=== PATIENT | male | born 1945 | race Caucasian/White ===

== ENCOUNTER 2020-02-16 08:04 | Inpatient (IN) | payer MEDICARE, OTHER ==
--- NOTE | 2020-02-16 08:44 | RAD ---
RADIOGRAPH CHEST 1 VIEW: DATE: 02/16/2020 TIME: 8:34 AM HISTORY: 74-year-old male with chest pain COMPARISON: 11/18/2010 FINDINGS: Again noted is the old left clavicular fracture deformity. New sternotomy wires since prior study. New finding of opacification of left lower lobe, and silhouetting of left hemidiaphragm. No pulmonary edema. Left upper lung zone and all of right lung earl are clear. No pneumothorax. IMPRESSION: 1) new opacification of left lower lobe: Atelectasis versus pneumonia. 2) status post coronary artery bypass graft surgery. 3) old left clavicular fracture deformity.
[2020-02-16 09:01] LABS: ALT (SGPT) 83 U/L (8-55); AST (SGOT) 109 U/L (5-34); Albumin 3.4 g/dL (3.4-4.8); Alkaline Phosphatase 158 U/L (40-110); Anion Gap 14 mmol/L (10-20); BUN (Urea Nitrogen) 24 mg/dL (8.4-25.7); Bilirubin, Total 1.1 mg/dL (0.2-1.2); Calc. Creatinine Clearance 0 mL/min (70-130); Calcium 8.7 mg/dL (7.8-10.44); Carbon Dioxide 21 mmol/L (23-31); Chloride 102 mmol/L (98-107); Estimated GFR-MDRD 61; Glucose 84 mg/dL (83-110); Lipase 130 U/L (8-78); Potassium 4.4 mmol/L (3.5-5.1); Protein, Total 6.4 g/dL (5.8-8.1); Sodium 133 mmol/L (136-145)
[2020-02-16 09:22] LABS: CKMB 1.4 ng/mL (0-6.6)
--- NOTE | 2020-02-16 10:03 | CT ---
EXAM: Abdomen and pelvic CT scan with contrast: HISTORY: Abdominal pain COMPARISON: None FINDINGS: 3 vessel coronary artery calcific disease. Lungs:Small to moderate left pleural effusion with some parenchymal changes in the left lower lobe ev idence for probable atelectasis. Liver: Air within some of the biliary tree. Gallbladder:Percutaneous cholecystotomy tube with some air in the gallbladder and some evidence for g allbladder wall thickening. Common bile duct:Nondilated Pancreas:Unremarkable Spleen:Unremarkable. Adrenal glands:Unremarkable. Kidneys:No renal calculus or acute obstruction. There appear to be small bilateral circumscribed low-attenuation renal masses evidence for cysts. In addition in the left kidney there is an enhancing higher density exophytic mass measuring 1.3 cm off the anterior mid kidney as well as a second exophytic enhancing higher density mass off the media l aspect of the upper pole of the left kidney measuring 1.2 cm. Both of these have the appearance of a small solid masses. Consider nonemergent follow-up CT scan with and without contrast with renal mass protocol, unless these have been previously evaluated. No evidence for bowel obstruction. Aorta:Atherosclerotic changes with calcified and soft plaque without significant aneurysm Spine:No significant acute process. No CT evidence for acute appendicitis. The urinary bladder is unremarkable. Reproductive system:Unremarkable No abscess, adenopathy, or abnormal fluid collection within the abdomen or pelvis. 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 Bilateral renal hypodensities evidence for small cysts as well as 2 enhancing exophytic masses of the left kidney worrisome for small solid masses. See recommendations for follow-up as above. Very high-grade/near occlusion of the proximal superior mesenteric artery.
--- NOTE | 2020-02-16 12:14 | PDOC.HHP ---
Hospitalist HPI - History of Present Illness Chest pain History of Present Illness: This is a 74-year-old male patient with a history of dementia, A. fib on Eliquis, recent CABG, cholecystitis who presents from his nursing facility at [facility] on account of chest pain this morning. Patient has history of dementia and poor memory. His daughter at bedside gave most of the history Significant recent history includes CABG done on 01/08/2020. After discharge on 01/20/2020 he got readmitted again on account of nausea and vomiting and diagnosed with cholecystitis. He however could not have surgery on account of his general physical statehad a gallbladder drain placed on 01/25/2020. He was also noted to have left pleural effusion for which he had thoracentesis on 01/28/2020. He was discharged to his custodial facility. 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 He also had atrial fibrillation and had been on Eliquis and was stopped briefly on account of nosebleed however he has been restarted on. He had cardioversion for A. fib couple of weeks ago according to daughter. He has also been having low blood pressures for which she is on fludrocortisone and midodrine. Was also previously on Flomax for BPH however at this also discontinued. This morning he had one episode of a fall while he got out of bed without assistance however he is unaware whether he hit his head and cannot remember most of the circumstances around the fall. He subsequently complained of chest pain for which she was transferred here for further management. EMS brought him in, given 325 mg aspirin en route. His initial blood pressure is with EMS was 90/55 with pulse ranging between 40 and 60,. At presentation His blood pressure was 102/54 with MAP of 70 pulse 57 respiratory 20. Temperature is 98.0 and saturation 100% on room air. His labs showed mildly elevated troponin of 0.04, lipase was 130, sodium 133 and bicarb 21. CBC not resulted. His EKG showed sinus rhythm with first-degree heart block with no concerning acute ST and T wave changes. Chest x-ray showed new opacification of his left lower lobe concerning for atelectasis versus pneumonia. CT revealed small to moderate left pleural effusion, bilateral renal hypodensities evidence of small cyst as well as 2 enhancing exophytic masses of the left kidney worrisome for small solid mass. Also noted very high-grade near occlusion of the proximal superior mesenteric artery. At the time of my evaluation his chest pain had resolved and he was generally pain-free. Patient and his family did not want to go back to [facility] because he preferred here that is why he was brought here rather than sent back to [facility]. After having extensive discussion with the patient on the benefits of going back to [facility] he still insisted on being managed here so I decided to go ahead and admit. Hospitalist ROS - Review of Systems Constitutional: denies: fever, chills, sweats Respiratory: denies: cough, shortness of breath, hemoptysis Cardiovascular: reports: chest pain. denies: palpitations, orthopnea Gastrointestinal: denies: nausea, vomiting, abdominal pain Genitourinary: denies: dysuria, frequency, incontinence Neurological: denies: weakness, numbness, incoordination Hospitalist History - Past Medical History Other Medical History: Dementia, cholecystitis, coronary disease that is post CABG - Past Surgical History Other Surgical History: CABG, gallbladder drain placement. - Family History Other Family History: Stroke, diabetes mellitus, - Social History Smoking Status: Never smoker Alcohol: reports: None Living Situation: Alone Occupation: [employer] Activity level: uses cane/walker - Exam General Appearance: awake alert Eye: PERRL, anicteric sclera Heart: RRR, no murmur, no gallops, normal peripheral pulses Heart - other findings: Surgical scar present Respiratory: no wheezes, no rales, no tachypnea Gastrointestinal: soft, non-tender, non-distended Gastrointestinal - other findings: Gallbladder adrenal right side. Extremities: no cyanosis, no clubbing, no edema Neurological: cranial nerve grossly intact, no weakness Neurological - other findings: Memory deficits Psychiatric: A&O x 3 Hospitalist Results - Labs Result Diagrams: 02/16/20 08:30 Lab results: Sodium 133 mmol/L (136-145) L 02/16/20 08:30 Potassium 4.4 mmol/L (3.5-5.1) 02/16/20 08:30 Chloride 102 mmol/L (98-107) 02/16/20 08:30 Carbon Dioxide 21 mmol/L (23-31) L 02/16/20 08:30 BUN 24 mg/dL (8.4-25.7) 02/16/20 08:30 Creatinine 1.16 mg/dL (0.7-1.3) 02/16/20 08:30 Glucose 84 mg/dL (83-110) 02/16/20 08:30 Lactic Acid 2.0 mmol/L (0.5-2.2) 02/16/20 08:16 Calcium 8.7 mg/dL (7.8-10.44) 02/16/20 08:30 Total Bilirubin 1.1 mg/dL (0.2-1.2) 02/16/20 08:30 AST 109 U/L (5-34) H 02/16/20 08:30 ALT 83 U/L (8-55) H 02/16/20 08:30 Alkaline Phosphatase 158 U/L (40-110) H 02/16/20 08:30 CK-MB (CK-2) 1.4 ng/mL (0-6.6) 02/16/20 08:30 Troponin I 0.041 ng/mL (< 0.028) H 02/16/20 08:30 Serum Total Protein 6.4 g/dL (5.8-8.1) 02/16/20 08:30 Albumin 3.4 g/dL (3.4-4.8) 02/16/20 08:30 Lipase 130 U/L (8-78) H 02/16/20 08:30 Hospitalist H&P A/P - Plan Plan: This is a 74-year-old male patient with a history of dementia, hypertension coronary disease status post CABG, recent CABG admitted for cholecystitis and resident of custodial. His recent surgical procedure isCABG/gallbladder drain were placed in [facility]. He presents today on account of chest pain and a fall this morning and was brought here for further evaluation. Patient and his family did not want to go back to [facility]. Admitting for observation overnight. Chest pain Status post recent CABG Troponin slightly elevated, EKG shows sinus rhythm with first-degree heart block prolonged QT Troponin slightly elevated at 0.041. This is not unexpected in the setting of recent CAD and STEMI Received aspirinwe will continue Appreciate cardiology input. Fall Likely from orthostatic hypotension. Unclear whether he hit his head. Is on anticoagulation on apixaban Telemetry Echofollow-up from [facility]. CT head Hold Eliquis until CT results. Resume fludrocortisone and midodrine PT Fall precaution Hypotension Maps above 65 for now Resume fludrocortisone and midodrine Continue blood pressure monitoring. Elevated troponin Troponin elevated 0.04 No ongoing chest pain We will monitor A. 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 Exophytic renal masses Rule out malignancy Will need follow-up imagingpatient's daughter noticed Left pleural effusion Status post thoracentesis in [facility] Follow-up on any cytology. Recent history of epistaxis Anticoagulation was temporarily held. VT prophylaxisSCD until he is able to restart apixaban CODE STATUS full code Dispositionpending.
[2020-02-16 12:29] LABS: Troponin I 0.054 ng/mL (< 0.028)
[2020-02-16] MEDS ORDERED: Iopamidol-370 76% 500 ML 1 ML ONE (14:23)
[2020-02-16] MEDS ORDERED: Nitroglycerin 0.4 MG TAB 1 EACH SL PRN (15:15)
[2020-02-16] MEDS ORDERED: Ondansetron ODT 4 MG TAB SL PRN (15:15)
[2020-02-16 15:57] LABS: Troponin I 0.039 ng/mL (< 0.028)
[2020-02-16] MEDS ORDERED: Aspirin 325 MG TAB PO SCH (16:00)
--- NOTE | 2020-02-16 17:08 | CT ---
CT BRAIN NONCONTRAST: DATE: 02/16/2020 HISTORY: 74-year-old male status post acute head trauma from fall FINDINGS: There is no evidence of acute intra-axial or extra-axial hemorrhage. There is no midline shift or any other mass effect. There is no extra-axial fluid collection. There is no evidence of obstructive hydrocephalus. Calvarium is intact. There is diffuse brain parenchymal volume loss. There are low att enuation areas in the white matter. These are nonspecific, but in a patient of this age, they are probably chronic ischemic white matter changes due to microvascular atherosclerosis. Small right jerrod etal superficial scalp contusion. IMPRESSION: 1) No acute intracranial findings. 2) involutional changes and chronic ischemic white matter changes. 3) small right parietal scalp contusion.
--- NOTE | 2020-02-16 17:26 | CON ---
DATE OF CONSULTATION: HISTORY OF PRESENT ILLNESS: Mr. Vaughn is a 74-year-old gentleman, who had coronary artery bypass grafting x4 at [facility] by Dr. Toro in early January. He has been home for a brief period of time after surgery and was readmitted with acute cholecystitis. He was not felt to be in any shape to undergo cholecystectomy, so he has had a drain placed in his gallbladder. He also underwent thoracentesis that admission. He was very weak after the cholecystostomy was placed and therefore was sent to the [facility]. While he has been at the [facility], he has not been wanting to eat. He says that the food is terrible, and he has been nauseated when he has tried to eat the food there. His family has brought him [employer], [employer], sushi, Japanese food and other food from outside the hospital, and he has had no problems eating that, although he says he does have a baseline nausea. He had atrial fibrillation postoperatively and was treated with amiodarone. Amiodarone was stopped at his admission this time, and I think that is probably the source of his GI upset. He has had a CT angiogram performed of his abdomen, and I was consulted because he has a near occlusion of his superior mesenteric artery. Celiac axis is widely patent. The patient does not have typical history for someone who has mesenteric ischemia. Currently, he is in normal sinus rhythm. PAST MEDICAL HISTORY: 1. Coronary artery disease, status post coronary artery bypass grafting x4 in early January 2020. 2. Cholecystitis, status post cholecystostomy tube placement. 3. Dementia. PAST SURGICAL HISTORY: As above. CURRENT MEDICATIONS AT HOME: 1. Midodrine 10 mg daily. 2. Lipitor 20 mg q.h.s. 3. Eliquis 2.5 mg b.i.d. 4. Amiodarone 100 mg daily. 5. CoQ10 of 200 mg q.h.s. 6. Zofran 4 mg q.8 hours. PHYSICAL EXAMINATION: GENERAL: This is a well-developed thin gentleman, resting comfortably on the telemetry unit. VITAL SIGNS: His temperature is 98.4. His pulse is 56 and regular. Blood pressure is 97/55. HEENT: Sclerae nonicteric. Pupils are equal and round bilaterally. NECK: Supple. He has no carotid bruit. CHEST: Clear bilaterally. Sternal incision is healing nicely. HEART: Rhythm is regular. ABDOMEN: Soft and nontender. EXTREMITIES: There is no edema. ASSESSMENT AND PLAN: Probable amiodarone-induced gastrointestinal upset. This usually resolves with stopping the amiodarone. Hopefully, he will not need any further workup for mesenteric ischemia as this is historically not his problem. Job ID: [id number]
[2020-02-16] MEDS: Apixaban 2.5 MG TAB PO SCH (21:45)
[2020-02-16] MEDS: Atorvastatin Calcium 20 MG TAB PO SCH (21:45)
--- NOTE | 2020-02-16 22:23 | CON ---
DATE OF CONSULTATION: HISTORY OF PRESENT ILLNESS: Gregg Vaughn is a 74-year-old white male with history of dementia and coronary artery disease, who underwent CABG x4 at [facility] by Dr. Toro in early January. He was readmitted with acute cholecystitis and underwent placement of a drain in his gallbladder since it was felt that it was too frail to undergo surgery. He also had thoracentesis during that admission. He had atrial fibrillation postoperatively and was treated with amiodarone and apparently also underwent cardioversion. Amiodarone was stopped due to poor appetite and GI upset and this seems to have improved. This morning, he got out of bed at the [facility] without assistance and fell. He then complained of chest pain. He states that this pain was definitely pleuritic in nature. He is uncertain exactly how long it lasted but does not think it lasted more than 5 or 10 minutes. He was then transferred here for further evaluation. At the present time, he has no complaints. PAST MEDICAL HISTORY: Coronary artery disease, acute cholecystitis with recent cholecystostomy tube placement, dementia, hypercholesterolemia, postoperative atrial fibrillation with cardioversion. PAST SURGICAL HISTORY: CABG and gallbladder drain placement. MEDICATIONS: 1. Amiodarone 100 mg daily. 2. Eliquis 2.5 mg b.i.d. 3. Atorvastatin 20 at bedtime. 4. Florinef 0.1 daily. 5. Magnesium oxide 400 daily. 6. Midrin 10 mg daily. 7. Nitroglycerin p.r.n. 8. Zofran p.r.n. 9. CoQ10 of 200 mg at bedtime. ALLERGIES: NONE. SOCIAL HISTORY: He does not smoke or drink. PHYSICAL EXAMINATION: VITAL SIGNS: 97/55, pulse of 56. HEENT: PERRL. NECK: Supple. CHEST: Clear. CARDIAC: S1 and S2 normal without any S3, S4, or murmurs. ABDOMEN: Normal bowel sounds without tenderness. EXTREMITIES: Reveal no clubbing, cyanosis, or edema. NEUROLOGIC: Grossly intact. SKIN: Warm and dry. MUSCULOSKELETAL: Revealed no palpable chest wall tenderness. LABORATORY DATA: EKG revealed normal sinus rhythm with first-degree AV block, nonspecific ST and T-wave changes. Sodium 133, potassium 4.4, chloride 102, carbon dioxide 21, BUN 24, creatinine 1.16, AST 109, ALT 83. Troponin I is 0.054. IMPRESSION: 1. Atypical chest discomfort which was pleuritic in nature and occurred after a fall. 2. Status post coronary artery bypass graft x4 in late December or early January. 3. Postoperative atrial fibrillation that apparently required cardioversion. 4. Status post acute cholecystitis with placement of gallbladder drain. 5. Hypercholesterolemia. 6. Hypotension. 7. Dementia. PLAN: Mr. Vaughn's chest discomfort certainly seemed atypical, and I do not feel that it represents myocardial ischemia. Overall, I do not feel any further evaluation is warranted at this time. We will continue to follow the patient with you. Job ID: [id number] [facility]
--- NOTE | 2020-02-16 22:33 | PDOC.FMACP ---
Advance Care Planning - Note Summary: Advanced Care Planning was discussed. The diagnosis, prognosis and goals of care were discussed. Surrogate decision maker is daughter. CODE STATUS full code
[2020-02-17] MEDS: Azithromycin 500 MG in Sodium Chloride 0.9% 250 ML 250 ML IVPB SCH (01:15)
[2020-02-17] MEDS: Cefepime 1 GM in Sodium Chloride 0.9% 100 ML IVPB SCH ×2 (02:29→12:02)
[2020-02-17 04:44] LABS: ALT (SGPT) 317 U/L (8-55); AST (SGOT) 329 U/L (5-34); Albumin 3.4 g/dL (3.4-4.8); Alkaline Phosphatase 418 U/L (40-110); Anion Gap 11 mmol/L (10-20); BUN (Urea Nitrogen) 21 mg/dL (8.4-25.7); Bilirubin, Total 1.1 mg/dL (0.2-1.2); Calc. Creatinine Clearance 51 mL/min (70-130); Calcium 8.6 mg/dL (7.8-10.44); Carbon Dioxide 28 mmol/L (23-31); Chloride 103 mmol/L (98-107); Estimated GFR-MDRD 70; Globulin 2.8 g/dL (2.4-3.5); Glucose 91 mg/dL (83-110); Potassium 4.1 mmol/L (3.5-5.1); Protein, Total 6.2 g/dL (5.8-8.1); Sodium 138 mmol/L (136-145)
[2020-02-17 05:25] LABS: Band 2 % (5-11); Eosinophils 3 % (0-10); Hemoglobin 9.8 g/dL (14.0-18.0); Lymphocytes 8 % (21-51); MDiff Complete? YES; Mean Corpuscular HGB CONC 33.4 g/dL (32.0-36.0); Mean Corpuscular Hemoglobin 30.4 pg (27.0-31.0); Mean Corpuscular Volume 91.1 fL (78.0-98.0); Mean Platelet Volume 7.3 fL (7.4-10.4); Monocytes 4 % (0-10); Neutrophil 83 % (42-75); Platelet Count 192 thou/uL (130-400); RBC Distribution Width 14.1 % (11.5-14.5); Red Blood Cell (RBC) Count 3.24 mill/uL (4.70-6.10); White Blood Cell (WBC) Count 5.7 thou/uL (4.8-10.8)
[2020-02-17] MEDS ORDERED: Midodrine HCl 5 MG TAB PO SCH (09:00)
[2020-02-17] MEDS: Fludrocortisone Acetate 0.1 MG TAB PO SCH (09:14)
[2020-02-17] MEDS: Apixaban 2.5 MG TAB PO SCH ×2 (09:14→22:20)
[2020-02-17] MEDS ORDERED: Aspirin 81 mg Enteric Coated Tablet PO SCH (14:15)
[2020-02-17] MEDS: Midodrine HCl 5 MG TAB PO SCH ×2 (15:41→22:21)
[2020-02-17 19:26] LABS: SARS-CoV-2 MS2 Positive; SARS-CoV-2 N Gene Negative; SARS-CoV-2 S Gene Negative; SARS-CoV-2 by NAA Not Detected (NotDetected); SARS-CoV-2 orf1ab Negative
[2020-02-17] MEDS: Atorvastatin Calcium 20 MG TAB PO SCH (22:21)
[2020-02-17] MEDS ORDERED: Sodium Chloride 0.9% 1,000 ML IV SCH (22:30)
--- NOTE | 2020-02-17 22:40 | PDOC.HOSPP ---
- Subjective Encounter Date: 02/17/20 Encounter Time: 10:00 Subjective: Patient was seen and examined in bed. He notes he generally felt better. He denied any chest pain shortness of breath. - Objective Vital Signs & Weight: Vital Signs (12 hours) Temp Pulse Pulse Pulse Resp BP BP 02/17/20 15:33 98.6 F 56 L 16 02/17/20 11:10 61 73 113/55 L 99/57 L 02/17/20 11:09 99.6 F 62 16 BP Pulse Ox Pulse Ox 02/17/20 15:33 99/54 L 100 02/17/20 11:10 100 02/17/20 11:09 113/55 L 100 Weight Admit Weight 131 lb 6.4 oz Weight 131 lb 6.4 oz I&O: 02/16/20 02/17/20 02/18/20 06:59 06:59 06:59 Intake Total 740 850 Output Total 700 525 Balance 40 325 Result Diagrams: 02/17/20 04:03 02/17/20 04:03 Hospitalist ROS - Medication Medications: Active Medications Generic Name Dose Route Start Last Admin Trade Name Kiley PRN Reason Stop Dose Admin Apixaban 2.5 mg 02/16/20 21:00 02/17/20 22:20 Apixaban 2.5 Mg Tab PO 2.5 mg BID JHONNY Administration Atorvastatin Calcium 20 mg 02/16/20 21:00 02/17/20 22:21 Atorvastatin Calcium 20 Mg Tab PO 20 mg HS JHONNY Administration Fludrocortisone Acetate 0.1 mg 02/17/20 09:00 02/17/20 09:14 Fludrocortisone Acetate 0.1 Mg Tab PO 0.1 mg DAILY JHONNY Administration Azithromycin 500 mg/ Sodium 250 mls @ 250 mls/hr 02/16/20 23:30 02/17/20 01:15 Chloride IVPB 250 mls 2330 JHONNY Administration Midodrine 10 mg 02/17/20 15:00 02/17/20 22:21 Midodrine Hcl 5 Mg Tab PO 10 mg TID JHONNY Administration - Exam General Appearance: awake alert Heart: RRR, no murmur, no gallops, normal peripheral pulses Respiratory: no wheezes, no rales, no ronchi, no tachypnea Gastrointestinal: soft, non-tender, non-distended, normal bowel sounds Extremities: no cyanosis, no clubbing, no edema Hosp A/P - Plan This is a 74-year-old male patient recent CABG, status post gallbladder drain placement all done in [facility] admitted a day ago on account of chest p ain and a fall. Patient did not want to go back to [facility] and insisted on being admitted here on his initial presentation He has had low blood pressures at baseline and has been on fludrocortisone and midodrine. He was started on empirical antibiotic coverage for pneumonia on azithromycin and cefepime on account of infiltrates noted on left lower lobe. Vascular surgery and cardiology have evaluated. His symptoms are not thought to be due to coronary artery disease origin. He has heart failure with reduced EF between 30 and 35 Today however his blood pressures have remained low and his midodrine dose was increased. This evening however he is blood cultures came back positive for Citrobacter in 2 bottles. He will be given IV normal saline bolus and antibiotic management intensified. Sepsis Hypotension with Citrobacter growing in blood. We will continue cefepime 2 g twice daily Source not clear at the moment. He however has gallbladder drainage tube is in [facility]. Citrobacter bacteremia Treat as above. ID consult in a.m. S/p gallbladder drain tube Placed in [facility] We will have surgery evaluate in a.m. Transaminitis Likely secondary to sepsis We will treat as above. Right upper quadrant ultrasound in the morning S/p CABG Stable We will monitor Falls Fall precautions VT prophylaxison apixaban CODE STATUSfull
[2020-02-18] MEDS: Cefepime 2 GM in Sodium Chloride 0.9% 100 ML IVPB SCH ×2 (01:39→11:21)
[2020-02-18] MEDS: Sodium Chloride 0.9% 1,000 ML IV SCH ×2 (01:39→16:39)
[2020-02-18] MEDS: Azithromycin 500 MG in Sodium Chloride 0.9% 250 ML 250 ML IVPB SCH (03:00)
[2020-02-18 05:12] LABS: #Eosinphils 0.4 thou/uL (0.0-0.7); #Lymphocytes 0.8 thou/uL (1.20-3.40); #Monocytes 0.5 thou/uL (0.11-0.59); #Neutrophils 4.4 thou/uL (1.40-6.50); %Basophils 0.2 % (0.0-1.0); %Lymphocytes 13.3 % (21.0-51.0); %Monocytes 8.2 % (0.0-10.0); %Neutrophils 72.2 % (42.0-75.0); Hemoglobin 8.4 g/dL (14.0-18.0); Mean Corpuscular HGB CONC 35.2 g/dL (32.0-36.0); Mean Corpuscular Hemoglobin 31.8 pg (27.0-31.0); Mean Corpuscular Volume 90.3 fL (78.0-98.0); Mean Platelet Volume 7.5 fL (7.4-10.4); Platelet Count 168 thou/uL (130-400); Red Blood Cell (RBC) Count 2.64 mill/uL (4.70-6.10); White Blood Cell (WBC) Count 6.1 thou/uL (4.8-10.8)
--- NOTE | 2020-02-18 08:24 | ULT ---
GALLBLADDER ULTRASOUND: HISTORY: Right upper quadrant pain. FINDINGS: Real-time imaging of the right upper quadrant shows a large amount of sludge within the gallbladder. No definitive stones are seen. There is gallbladder wall thickening and a suggestion of edema kimble e. The common duct is 6 mm. The liver shows diffuse increased echogenicity suggesting fatty change. The right kidney is normal in size and not obstructed. The pancreas is obscured. IMPRESSION: 1. A moderate amount of sludge within the gallbladder with gallbladder wall thickening and suggestio n of edema change within the wall. Gallbladder wall measures in the 7 mm range. The common duct is 6 mm in size. 2. Fatty change of the liver. POS: OFF
[2020-02-18] MEDS: Fludrocortisone Acetate 0.1 MG TAB PO SCH (08:59)
[2020-02-18] MEDS: Midodrine HCl 5 MG TAB PO SCH ×3 (08:59→20:52)
[2020-02-18] MEDS: Aspirin 81 mg Enteric Coated Tablet PO SCH (08:59)
[2020-02-18] MEDS: Apixaban 2.5 MG TAB PO SCH (08:59)
[2020-02-18] MEDS ORDERED: Iopamidol 300 61% 50 ML VIAL FS ONE (09:25)
--- NOTE | 2020-02-18 14:35 | RAD ---
Exam: Cholecystostomy tube check with fluoroscopy HISTORY: Evaluate for possible patency of the cystic duct. Patient had a previously distended gallbla dder. FINDINGS: Initial head loader radiograph demonstrates a cholecystostomy tube in the right upper quadrant. P atient was administered contrast into the cholecystostomy tube. Contrast opacifies the gallbladder. Contrast passes from the cystic duct into the common bile duct. There is eventual passage of contrast from the common bile duct into the small bowel. Note, there does appear to be caliber change involving the distal cystic duct. The possibility of underlying mass is not appreciated on current CT . IMPRESSION: Contrast does flow from the gallbladder into the small bowel. However, there is shoulderi ng and caliber change involving the distal common bile duct just proximal to the duodenum. The possibility of an extrinsic mass or intraluminal mass causing narrowing/stricture is a consideration. ERCP is recommended. Findings conveyed to Dr. Houston on 02/18/2020 at 2:34 PM. Code CR Transcribed Date/Time: 02/18/2020 2:57 PM
--- NOTE | 2020-02-18 15:09 | CON ---
DATE OF CONSULTATION: HISTORY OF PRESENT ILLNESS: Gregg Vaughn is a 74-year-old male patient, who is a resident at the [facility], transferred to this facility on this occasion because of proximity to the [facility], admitted on 02/16/2020 to the hospitalist service, seen by Dr. Tha Ulloa, Cardiology; Dr. Luciano Ross, Nelson Toro, Cardiac Surgery for complaints of pain in chest. The patient has a history of dementia, atrial fibrillation on Eliquis, recent coronary artery bypass grafting, postoperatively complicated by distended gallbladder, undergoing cholecystostomy tube reportedly placed January 24, [facility] for distended gallbladder without stones. He had a left thoracentesis on 01/28/2020. He is on Eliquis for atrial fibrillation. The patient when getting out of bed, had a moment of weakness, could not remember incidents around the fall, although he has history of dementia. Blood pressure was 102/54, heart rate 57, respiratory rate 20, sats 100%. He was admitted. He was evaluated in the emergency room. CAT scan of the abdomen and pelvis on 02/16/2020 revealed percutaneous cholecystostomy tube, air in the gallbladder and some evidence for gallbladder wall thickening, common bile duct was not dilated, enhancing left renal mass 1.3 cm, second high-density mass medial left kidney, solid mass, considering nonemergent followup CAT scan without contrast. Renal mass protocol recommended. There appeared to be some narrowing of the SMA and when compared to [facility], this seems to be worse. Dr. Ross and Cortez are seen him for that. The patient underwent abdominal ultrasound on 02/18/2020, demonstrated sludge within the gallbladder, gallbladder wall thickening, common bile duct 6 mm, fatty liver. The patient's echocardiogram this hospitalization reveals EF 45% to 50%, normal RV size and function. Dr. Ulloa has seen him this hospitalization. Since being in this hospital, the patient has been afebrile. Heart rate in the 50s. Output from the cholecystostomy tube was not recorded. The patient nor can tell me whether the tube has been irrigated at the [facility]. ALLERGIES: NONE. SOCIAL HISTORY: Tobacco, none. Alcohol, none. MEDICATIONS: At home, 1. Zofran. 2. CoQ10. 3. Pacerone. 4. Eliquis. 5. Calcium. 6. Florinef. 7. Mag oxide. 8. Nitroglycerin. 9. Midodrine. 10. Acetaminophen. In the hospital, he has been placed on azithromycin IV. PHYSICAL EXAMINATION: VITAL SIGNS: 5 feet 8, 131 pounds, 20 BMI, 97.8 degrees, 54, 106/57. LUNGS: Clear to auscultation. CARDIAC: Regular rate and rhythm without murmur or gallop. ABDOMEN: Soft, nondistended, nontender. Cholecystostomy tube, right subcostal drain into a bag. EXTREMITIES: No ankle edema. LABORATORY DATA: White count 6, hemoglobin 8.4. Basic metabolic profile normal. Bilirubin normal. Lipase is normal. Alkaline phosphatase 418, AST and ALT 329 and 317. ASSESSMENT AND PLAN: 1. Cholecystostomy tube. This has been time. We would recommend tube check under fluoro. If it has adequate drainage and is essentially normal, the tube could be removed. If it does not have adequate drainage, then continued irrigating of the tube and management would be recommended. We will await tube check under fluoro. 2. Coronary artery disease. 3. Dementia. Job ID: [id number]
--- NOTE | 2020-02-18 15:16 | PRG ---
DATE OF SERVICE: 02/18/2020 Gregg Vaughn had a contrast tube check. This revealed some shouldering, narrowing of the distal common bile duct, intrapancreatic. Retrospective review of his CAT scan does not reveal pancreatic head mass. However, given these findings, we would recommend GI consultation for ERCP. His cystic duct is patent. Concern for a distal bile duct stricture or tumor should be given and I would not remove the cholecystostomy tube until this question is answered by ERCP. He may even need to be referred for endoscopic ultrasound as an outpatient. For this reason, we will hold his Eliquis, since he has received Eliquis this morning on Tuesday, he will not be able to have his ERCP until at the soonest Tuesday or . I have notified Dr. Tiburcio Turner, who will see him today. Job ID: [id number]
[2020-02-18 18:11] LABS: #Eosinphils 0.1 thou/uL (0.0-0.7); #Lymphocytes 0.6 thou/uL (1.20-3.40); #Monocytes 0.3 thou/uL (0.11-0.59); #Neutrophils 7.3 thou/uL (1.40-6.50); %Eosinophils 1.7 % (0.0-10.0); %Lymphocytes 7.2 % (21.0-51.0); %Monocytes 3.1 % (0.0-10.0); %Neutrophils 88.1 % (42.0-75.0); Hemoglobin 10.8 g/dL (14.0-18.0); Mean Corpuscular HGB CONC 33.3 g/dL (32.0-36.0); Mean Corpuscular Volume 90.1 fL (78.0-98.0); Platelet Count 204 thou/uL (130-400); RBC Distribution Width 14.1 % (11.5-14.5); White Blood Cell (WBC) Count 8.3 thou/uL (4.8-10.8)
[2020-02-18 18:35] LABS: ALT (SGPT) 174 U/L (8-55); AST (SGOT) 103 U/L (5-34); Albumin 3.4 g/dL (3.4-4.8); Alkaline Phosphatase 354 U/L (40-110); Anion Gap 15 mmol/L (10-20); BUN (Urea Nitrogen) 23 mg/dL (8.4-25.7); Bilirubin, Total 1.3 mg/dL (0.2-1.2); Calc. Creatinine Clearance 56 mL/min (70-130); Calcium 8.5 mg/dL (7.8-10.44); Carbon Dioxide 25 mmol/L (23-31); Chloride 103 mmol/L (98-107); Estimated GFR-MDRD 77; Globulin 3.1 g/dL (2.4-3.5); Glucose 83 mg/dL (83-110); Potassium 4.2 mmol/L (3.5-5.1); Protein, Total 6.5 g/dL (5.8-8.1); Sodium 139 mmol/L (136-145)
[2020-02-18] MEDS ORDERED: Acetaminophen 500 MG TAB PO SCH (20:00)
[2020-02-18] MEDS: Vancomycin HCl 1.25 GM in Sodium Chloride 0.9% 250 ML 250 ML IVPB SCH ×2 (20:52→21:55)
[2020-02-18] MEDS: Atorvastatin Calcium 20 MG TAB PO SCH (20:52)
[2020-02-18] MEDS ORDERED: Sodium Chloride 0.9% 500 ML IV SCH (21:00)
[2020-02-18] MEDS ORDERED: Vancomycin 1.5 GM in Premix Bag 1 BAG IVPB SCH (21:00)
--- NOTE | 2020-02-18 23:01 | CON ---
DATE OF CONSULTATION: 02/18/2020 REASON FOR CONSULTATION: Elevated LFTs. CONSULTING PROVIDER: Abran Houston MD HISTORY OF PRESENT ILLNESS: The patient is a 74-year-old male with past medical history of dementia; atrial fibrillation, on Eliquis; hyperlipidemia; and pericholecystitis, and recent CABG, who initially presented with complaints of chest pain. On review of the patient's chart, the patient was admitted to [facility] in December 2019 and ultimately underwent a four-vessel coronary artery bypass graft. In the postoperative period, he did have what appeared to be cholecystitis and at that time, the patient was deemed too frail to undergo surgery, so he ultimately had a cholecystostomy tube placed. He was ultimately discharged back to the [facility] where the patient is currently a resident at where it is unknown if the patient had a proper followup for this cholecystostomy tube. However, prior to admission, the patient had increasing chest pain that ultimately prompted the long term to transfer him back to [facility] for further evaluation. He was subsequently evaluated by the Cardiology Service with the chest pain deemed to be pleuritic in nature rather than cardiac with no indications for further management at this time. However, General Surgery was also consulted for this cholecystostomy tube where the patient does continue to have some mild pain around the insertion site itself. On initial imaging with the right upper quadrant ultrasound, it did show a large amount of sludge within the gallbladder as well as continued gallbladder wall thickening, but a normal common bile duct 6 mm and diffuse echogenicity seen throughout the entire liver consistent with hepatic steatosis. Currently, the patient states that he is doing well with resolution of his admitting pleuritic/chest pain. However, he does continue to have some mild right upper quadrant abdominal pain. Otherwise, he currently denies any nausea, vomiting, fevers, chills, hematemesis, melena, hematochezia, dysphagia, odynophagia, diarrhea, constipation, or weight loss. REVIEW OF SYSTEMS: A 10-category review of systems was obtained with all responses negative except for the pertinent positives as listed in HPI. PAST MEDICAL HISTORY: As per HPI. PAST SURGICAL HISTORY: Four-vessel CABG and cholecystostomy drain placement. FAMILY HISTORY: Denies any GI malignancies. SOCIAL HISTORY: No mention of any tobacco, alcohol, or illicit drug use. OUTPATIENT MEDICATIONS: Reviewed. ALLERGIES: NO KNOWN DRUG ALLERGIES. PHYSICAL EXAMINATION: VITAL SIGNS: Temperature 97.8, pulse 69, blood pressure 103/52, respiratory rate 16, saturating 100% on room air. GENERAL: The patient was lying in bed, in no acute distress. Alert and oriented x3 (although the patient was prompted by his during some of the sensorium questions). HEENT: Normocephalic, atraumatic. No scleral icterus noted NECK: Supple. No JVD. CARDIOVASCULAR: Regular rate and rhythm with no discernible murmurs, gallops, or rubs. RESPIRATORY: Clear to auscultation bilaterally with no discernible wheezes or rales. ABDOMEN: Normoactive bowel sounds. Soft, nontender, nondistended. A cholecystostomy tube was seen emanating from the right subcostal region with yellowish-greenish fluid within the drain itself. EXTREMITIES: No cyanosis, clubbing, or edema. LABORATORY DATA: CBC with a white blood cell count of 6.1, hemoglobin 8.4, hematocrit 23.9, platelets 168. Chemistry with a sodium of 138, potassium 4.1, chloride 103, CO2 of 28, BUN 21, creatinine 1.03, glucose 91, AST 329, ALT 317, alkaline phosphatase 418, total bilirubin 1.1. CRP 4.22. COVID serology negative. IMAGING DATA: CT of the abdomen and pelvis was obtained on February 16, 2020, which showed [id number] left pleural effusion as well as air within the biliary tree consistent with cholecystostomy tube. Two solid renal masses were also seen concerning for the presence of possible renal malignancy. Near occlusion of the SMA was also seen as well indicative of significant peripheral arterial disease. A tube check was obtained on February 18, 2020, which showed contrast passing from the cystic duct into the common bile duct and ultimately into the small intestine. However, there was a significant caliber change involving the distal common bile duct concerning for the presence of a mass versus stricture. Right upper quadrant abdominal ultrasound was obtained on February 18, 2020, which showed a large amount of sludge within the gallbladder, gallbladder wall thickening, diffuse echogenicity throughout the liver consistent with hepatic steatosis and normal caliber of the common bile duct at 6 mm. ASSESSMENT AND PLAN: The patient is a 74-year-old male with past medical history of dementia; atrial fibrillation, on chronic anticoagulation with Eliquis; hyperlipidemia; recent coronary artery bypass graft x4 that was complicated with cholecystitis and intervened upon with cholecystostomy tube, now presenting with elevated LFTs and continued cholecystostomy tube. Elevated liver function tests. The patient has had a fairly complicated medical course more recently, especially in light of his postoperative period after the 4-vessel coronary artery bypass graft. He had what appeared to be an episode of cholecystitis that was intervened upon with cholecystostomy tube due to the patient's clinical status at that time and being deemed too frail to undergo laparoscopic cholecystectomy. Since that time, the patient has had this cholecystostomy tube in place and has been draining yellowish-greenish fluid with no evidence of purulence or blood per review of the patient's chart and per the patient's at bedside. However, during this hospitalization, the patient had routine labs that showed significant elevation in AST, ALT, and alkaline phosphatase concerning for the presence of a possible biliary obstruction. Tube check obtained on February 17 also showed a caliber change in the distal common bile duct concerning for mass and/or stricture. At this time, it is unknown if this would be artifactual from the imaging modalities use versus collection of microlithiasis/sludge in the distal common bile duct or secondary to possible ampullary stenosis contributing to this caliber change noted on imaging. In any case with imaging and laboratory findings concerning for obstruction, the patient will ultimately need endoscopic retrograde cholangiopancreatography for further evaluation. However, he is also on chronic anticoagulation with Eliquis and this will need to be discontinued for approximately 48 hours prior to undergoing endoscopic retrograde cholangiopancreatography safely. RECOMMENDATIONS: 1. Would continue to trend the patient's LFTs daily for signs of worsening inflammation. 2. Continue to hold any anticoagulation including Eliquis. 3. Would proceed with ERCP on Tuesday for evaluation of the distal common bile duct and probable sphincterotomy performed at that time. 4. Would defer to the General Surgery Service as to timing for cholecystectomy. 5. Agree with placing the patient on broad-spectrum antibiotics, especially in light of possible obstructive process in the common bile duct. 6. Would continue to attempt to obtain records from [facility] regarding the placement of the cholecystostomy tube and the clinical scenario surrounding it. We will continue to follow. Please call with any questions. Job ID: [id number]
[2020-02-18] MEDS: Piperacillin/Tazobactam 4.5 GM in Sodium Chloride 0.9% 100 ML IVPB SCH (23:31)
[2020-02-19] MEDS: Azithromycin 500 MG in Sodium Chloride 0.9% 250 ML 250 ML IVPB SCH (00:10)
--- NOTE | 2020-02-19 01:26 | PDOC.BPN ---
- Brief Progress Note Encounter Date: 02/18/20 Encounter Time: 19:00 Dagoberto morin was called at about 7pm for sepsis alert Patient was more drousy with temp up to 102 Vitals were otherwise stable with soft BPS ON evaluaion Patietient transfered to IMCU for closer monitoring Antibiotics changed from cefepime to zosyn and vancomycin new blood cutures drawn 500mls NS bolus and to continue on 100 Patient has reduced EF thus being cautions with fluids
[2020-02-19 04:00] LABS: #Lymphocytes 1.2 thou/uL (1.20-3.40); #Monocytes 0.6 thou/uL (0.11-0.59); %Basophils 0.1 % (0.0-1.0); %Eosinophils 0.4 % (0.0-10.0); %Lymphocytes 10.9 % (21.0-51.0); %Monocytes 5.9 % (0.0-10.0); %Neutrophils 82.7 % (42.0-75.0); Hemoglobin 8.3 g/dL (14.0-18.0); Mean Corpuscular HGB CONC 33.1 g/dL (32.0-36.0); Mean Corpuscular Hemoglobin 30.1 pg (27.0-31.0); Mean Corpuscular Volume 91.1 fL (78.0-98.0); Mean Platelet Volume 7.3 fL (7.4-10.4); Platelet Count 155 thou/uL (130-400); Red Blood Cell (RBC) Count 2.75 mill/uL (4.70-6.10); White Blood Cell (WBC) Count 10.8 thou/uL (4.8-10.8)
[2020-02-19 04:19] LABS: ALT (SGPT) 119 U/L (8-55); AST (SGOT) 67 U/L (5-34); Albumin 2.7 g/dL (3.4-4.8); Alkaline Phosphatase 266 U/L (40-110); Anion Gap 11 mmol/L (10-20); BUN (Urea Nitrogen) 23 mg/dL (8.4-25.7); Bilirubin, Total 1.2 mg/dL (0.2-1.2); CRP (Inflammatory) 6.35 mg/dL (= or < 0.5); Calc. Creatinine Clearance 61 mL/min (70-130); Calcium 7.7 mg/dL (7.8-10.44); Carbon Dioxide 25 mmol/L (23-31); Chloride 106 mmol/L (98-107); Estimated GFR-MDRD 85; Globulin 2.4 g/dL (2.4-3.5); Glucose 87 mg/dL (83-110); Potassium 4.2 mmol/L (3.5-5.1); Protein, Total 5.1 g/dL (5.8-8.1); Sodium 138 mmol/L (136-145)
[2020-02-19] MEDS: Sodium Chloride 0.9% 1,000 ML IV SCH ×2 (05:19→16:17)
[2020-02-19] MEDS: Piperacillin/Tazobactam 4.5 GM in Sodium Chloride 0.9% 100 ML IVPB SCH ×3 (06:09→21:59)
[2020-02-19] MEDS: Midodrine HCl 5 MG TAB PO SCH ×3 (09:31→22:00)
[2020-02-19] MEDS: Aspirin 81 mg Enteric Coated Tablet PO SCH (09:31)
[2020-02-19] MEDS: Fludrocortisone Acetate 0.1 MG TAB PO SCH (09:34)
--- NOTE | 2020-02-19 11:23 | PRG ---
DATE OF SERVICE: 02/19/2020 SUBJECTIVE: Mr. Vaughn is pleasantly confused. He did spike a fever overnight, was moved to the [facility], but this morning, he is hemodynamically stable. He is afebrile. He denies any abdominal pain, nausea, or vomiting. OBJECTIVE: VITAL SIGNS: Temperature 97.5, blood pressure 91/44, heart rate 50 and regular, and 100% oxygen saturation on room air. GENERAL: Sitting up in bed comfortably, in no distress. Pleasantly confused. HEART: Regular, bradycardia. LUNGS: Clear to auscultation bilaterally. ABDOMEN: Soft and nontender to palpation throughout, nondistended. He does have cholecystostomy tube in place. Site looks good. EXTREMITIES: No peripheral edema. LABORATORY STUDIES: WBC is 10.8, hemoglobin 8.3, platelets 155. Sodium 138, potassium 4.2, BUN 23, creatinine 0.87, total bilirubin 1.2, alkaline phosphatase 266, AST 67, ALT 119. LFTs are slightly down from yesterday. CRP elevated to 6.35, albumin 2.7, lipase 130. COVID PCR is negative. ASSESSMENT AND PLAN: 1. Elevated LFTs, likely secondary to cholecystitis and possible partial common duct obstruction. 2. Cholelithiasis, status post cholecystostomy tube placed at [facility]. 3. Gram-negative bacteremia. 4. Biliary sludge. 5. Atrial fibrillation, on Eliquis. Eliquis is being held since yesterday morning. The patient's contrast study through the cholecystostomy tube demonstrates patent cystic duct, but suggestion of shouldering and narrowing in the distal common bile duct, cannot rule out possibility of extrinsic or intraluminal mass causing stricture in the area. The plan is for the patient to go for endoscopic retrograde cholangiopancreatography tomorrow. At that point, Eliquis will have been held for 48 hours. The patient did spike fever overnight, but is currently afebrile and hemodynamically stable on broad antibiotics with what appears to be a gram-negative sepsis. Further recommendations following ERCP tomorrow. Please call in the meantime with any questions or concerns or significant changes in his clinical status. Job ID: [id number]
--- NOTE | 2020-02-19 16:46 | PDOC.HOSPP ---
- Subjective Subjective: pt was seen and examined. D/w daughter at bedside. no fever. - Objective Vital Signs & Weight: Vital Signs (12 hours) Temp Pulse Ox 02/19/20 15:13 97.2 F L 02/19/20 11:21 97.9 F 02/19/20 08:00 100 02/19/20 07:29 97.5 F L 02/19/20 06:25 98.5 F Weight Admit Weight 131 lb 6.4 oz Weight 131 lb 6.4 oz Most Recent Monitor Data Heart Rate from ECG 53 NIBP 98/48 NIBP BP-Mean 64 Respiration from ECG 20 SpO2 100 I&O: 02/18/20 02/19/20 02/20/20 06:59 06:59 06:59 Intake Total 3040 3502 Output Total 1125 350 Balance 1915 3152 Result Diagrams: 02/19/20 03:34 02/19/20 03:34 Additional Labs: Accuchecks 02/18/20 19:43 POC Glucose 99 Radiology Reviewed by me: Yes EKG Reviewed by me: Yes Hospitalist ROS - Medication Medications: Active Medications Generic Name Dose Route Start Last Admin Trade Name Freq PRN Reason Stop Dose Admin Aspirin 81 mg 02/18/20 09:00 02/19/20 09:31 Aspirin 81 Mg Enteric Coated Tablet PO 81 mg DAILY JHONNY Administration Atorvastatin Calcium 20 mg 02/16/20 21:00 02/18/20 20:52 Atorvastatin Calcium 20 Mg Tab PO 20 mg HS JHONNY Administration Fludrocortisone Acetate 0.1 mg 02/17/20 09:00 02/19/20 09:34 Fludrocortisone Acetate 0.1 Mg Tab PO 0.1 mg DAILY JHONNY Administration Azithromycin 500 mg/ Sodium 250 mls @ 250 mls/hr 02/16/20 23:30 02/19/20 00:10 Chloride IVPB 250 mls 2330 JHONNY Administration Sodium Chloride 1,000 mls @ 100 mls/hr 02/18/20 00:45 02/19/20 16:17 Normal Saline 0.9% IV 1,000 mls .Q10H JHONNY Administration Piperacillin Sod/Tazobactam 100 mls @ 200 mls/hr 02/18/20 22:00 02/19/20 15:56 Sod 4.5 gm/ Sodium Chloride IVPB 100 mls Q8HR JHONNY Administration Vancomycin HCl 1.25 gm/ Sodium 250 mls @ 166.667 mls/hr 02/18/20 21:00 02/18/20 21:55 Chloride IVPB 250 mls 2100 JHONNY Administration Midodrine 10 mg 02/17/20 15:00 02/19/20 15:56 Midodrine Hcl 5 Mg Tab PO 10 mg TID JHONNY Administration - Exam General Appearance: NAD Eye: PERRL ENT: normocephalic atraumatic Neck: supple Heart: RRR Respiratory: CTAB Gastrointestinal: soft, non-tender Gastrointestinal - other findings: positive for cholecystectomy tube Extremities: no cyanosis Skin: normal turgor Neurological: cranial nerve grossly intact Musculoskeletal: normal tone Hosp A/P - Plan The patient is a pleasant 74 years old gentleman who has significant past medical history of atrial fib on Eliquis for stroke prophylaxis, dyslipidemia CAD with status post recent four-vessel CABG in early January. Postoperatively, complicated with cholecystitis; however, patient was deemed not a candidate for surgery. Ultimately, patient had a cholecystectomy tube placed at [facility]. He subsequently discharged to a [facility] for rehab, patient presented to ER with complaint of chest pain, and s/p fall. Patient dec lined to go back to [facility], ultimately he was admitted for further work-up Sepsis - poa --cont IV abx, follow rpt blood culture --pt has hx of low BP at baseline Citrobacter bacteremia - likely related to indwelling cholecystectomy tube as a possible source --cont IV abx. ID was consulted --follow rpt BCx to document clearance Elevated LFT - possible d/t cholecystitis with possible CBD obstruction --GI plans for ERCP tomorrow --cont IV abx as above Hx cholecystitis with s/p cholecystectomy drain placement at [facility] --GI is following. Pt was deemed not a candidate for surgery CAD with s/p recent CABG in January at [facility] --cont home meds as able --cont ASA/Statin, consider holding statin if LFT is trending upward although LFT elevated likely d/t biliary source in appropriate setting --BP and HR too low for BB Chest discomfort --pt was evaluated by cardiology PAF --rate controlled. Eliquis is on hold for procedure Hypotension --cont home medications Midodrine and Florinef
[2020-02-19] MEDS: Vancomycin HCl 1.25 GM in Sodium Chloride 0.9% 250 ML 250 ML IVPB SCH (21:59)
[2020-02-19] MEDS: Atorvastatin Calcium 20 MG TAB PO SCH (22:00)
[2020-02-20] MEDS: Azithromycin 500 MG in Sodium Chloride 0.9% 250 ML 250 ML IVPB SCH (00:37)
[2020-02-20] MEDS: Sodium Chloride 0.9% 1,000 ML IV SCH ×2 (03:12→14:17)
[2020-02-20 03:51] LABS: #Eosinphils 0.3 thou/uL (0.0-0.7); #Lymphocytes 0.9 thou/uL (1.20-3.40); #Monocytes 0.3 thou/uL (0.11-0.59); #Neutrophils 3.4 thou/uL (1.40-6.50); %Basophils 0.3 % (0.0-1.0); %Eosinophils 5.2 % (0.0-10.0); %Lymphocytes 18.7 % (21.0-51.0); %Monocytes 6.2 % (0.0-10.0); %Neutrophils 69.6 % (42.0-75.0); Hemoglobin 7.5 g/dL (14.0-18.0); Mean Corpuscular HGB CONC 33.8 g/dL (32.0-36.0); Mean Corpuscular Hemoglobin 31.1 pg (27.0-31.0); Mean Platelet Volume 7.1 fL (7.4-10.4); Platelet Count 148 thou/uL (130-400); RBC Distribution Width 13.9 % (11.5-14.5); Red Blood Cell (RBC) Count 2.42 mill/uL (4.70-6.10); White Blood Cell (WBC) Count 4.9 thou/uL (4.8-10.8)
[2020-02-20 04:15] LABS: ALT (SGPT) 82 U/L (8-55); AST (SGOT) 43 U/L (5-34); Albumin 2.4 g/dL (3.4-4.8); Alkaline Phosphatase 207 U/L (40-110); Anion Gap 10 mmol/L (10-20); BUN (Urea Nitrogen) 22 mg/dL (8.4-25.7); Calc. Creatinine Clearance 65 mL/min (70-130); Calcium 7.6 mg/dL (7.8-10.44); Carbon Dioxide 22 mmol/L (23-31); Chloride 110 mmol/L (98-107); Estimated GFR-MDRD Greater than 90; Globulin 2.1 g/dL (2.4-3.5); Glucose 77 mg/dL (83-110); Potassium 3.7 mmol/L (3.5-5.1); Protein, Total 4.5 g/dL (5.8-8.1); Sodium 138 mmol/L (136-145)
[2020-02-20] MEDS: Piperacillin/Tazobactam 4.5 GM in Sodium Chloride 0.9% 100 ML IVPB SCH ×3 (05:35→21:41)
[2020-02-20] MEDS: Midodrine HCl 5 MG TAB PO SCH ×3 (09:11→20:49)
[2020-02-20] MEDS ORDERED: Succinylcholine 200 MG/10 ml SYRINGE FS ONE (10:10)
[2020-02-20] MEDS ORDERED: Glycopyrrolate 0.2 MG/ML 5 ML SYRINGE ONE (10:10)
[2020-02-20] MEDS ORDERED: PHENYLEPHRINE-NS 100 MCG/ML 10 ML SYRINGE ONE (10:10)
[2020-02-20] MEDS ORDERED: Lidocaine 1% PF 5 ML VIAL ONE (10:10)
[2020-02-20] MEDS ORDERED: PROPOFOL 200 MG/20 ML VIAL ONE (10:10)
[2020-02-20] MEDS ORDERED: Ondansetron PF 4 MG/2 ML Vial ONE (10:10)
[2020-02-20] MEDS ORDERED: Dexamethasone 20 MG/5 ML VIAL ONE (10:10)
[2020-02-20] MEDS ORDERED: Fentanyl 100 MCG/2 ML VIAL ONE (11:10)
[2020-02-20] MEDS ORDERED: Indomethacin 50 MG SUPP ONE (11:12)
[2020-02-20] MEDS ORDERED: Iothalamate Meglumine 60% 50 ML VIAL FS ONE (11:12)
[2020-02-20] MEDS ORDERED: Ondansetron HCl/PF 4 MG/2 ML Vial IVP PRN (11:21)
[2020-02-20] MEDS ORDERED: Promethazine HCl 25 MG/ML VIAL SLOW IVP PRN (11:21)
[2020-02-20] MEDS ORDERED: Promethazine HCl 25 MG/ML VIAL IM PRN (11:21)
--- NOTE | 2020-02-20 12:41 | RAD ---
EXAM: ERCP HISTORY: Cholelithiasis COMPARISON: Gallbladder ultrasound 02/18/2020 FINDINGS: Limited intraoperative fluoroscopic views were taken during a an ERCP. Common duct is normal in caliber. Some of the images on the middle images show questionable filling d efects in the midportion of the common bile duct. These are not seen on the latter images. No leakage from the common bile duct. Contrast fills the gallbladder and there are multiple filling defects within the gallbladder. A percu taneous cholecystostomy tube is seen in the gallbladder. No abnormality of the intrahepatic bile ducts. IMPRESSION: 1. Cholelithiasis
--- NOTE | 2020-02-20 13:03 | OP ---
DATE OF PROCEDURE: 02/20/2020 PROCEDURE PERFORMED: Endoscopic retrograde cholangiopancreatography with sphincterotomy and balloon sweep of the bile duct. PREOPERATIVE DIAGNOSES: Choledocholithiasis and abnormal liver tests with obstructive pattern and abnormal imaging with a cholangiogram through the cholecystostomy tube suggesting sludge or stones in the bile duct. DESCRIPTION OF PROCEDURE: Informed consent was obtained. The patient was sedated with general anesthesia and placed in the prone position. The duodenoscope was advanced easily to the second portion of the duodenum, where the ampulla was identified and appeared unremarkable. There was no bile flow from the ampulla. The pancreatic duct was initially accessed with a guidewire and the guidewire was left in place in the distal pancreatic duct. The sphincterotome and a new guidewire were then reinserted and the bile duct was selectively cannulated without difficulty. The wire in the pancreatic duct was removed. The patient did receive rectal indomethacin prior to the procedure. Cholangiogram was performed which revealed a 9 mm common bile duct with normal intrahepatic ducts. The cystic duct and gallbladder filled. A complete sphincterotomy was performed. The common hepatic and common bile ducts were swept with a 12 mm balloon, which passed easily through the sphincterotomy without resistance. Only clear yellow bile was retrieved. There were no stones or sludge in the bile duct. Occlusion cholangiogram confirmed the common bile duct and common hepatic duct to be clear. Intrahepatic ducts were normal. IMPRESSION: 1. Cholangiogram showing a 9 mm common bile duct with normal intrahepatic ducts and common hepatic duct with no obvious filling defects. 2. Complete sphincterotomy was performed. 3. The common hepatic and common bile duct were swept with a 12 mm balloon, which passes easily through the sphincterotomy site without resistance. The bile was clear and yellow. 4. Occlusion cholangiogram confirms the common bile duct and common hepatic duct to be clear. RECOMMENDATIONS: 1. Follow trend of the liver tests. 2. Continue antibiotics. Job ID: [id number]
--- NOTE | 2020-02-20 13:49 | PQF ---
CLINICAL DOCUMENTATION CLARIFICATION FORM: Dear Dr. Domingo Capone Date: 02/20/2020 Please exercise your independent, professional judgment in responding to the clarification form. Clinical indicators are provided on the bottom of this form for your review. Please check appropriate box(es): [ X] Protein Calorie Malnutrition: [ ] Mild [ X ] Moderate [ ] Severe [ ] Other Malnutrition (please specify) [ ] Underweight without malnutrition [ ] Other diagnosis [ ] Unable to determine In addition, please specify: Present on Admission (POA): [ X ] Yes [ ] No [ ] Unable to determine For continuity of documentation, please document condition throughout progress notes and discharge summary. Thank You. To be completed by CDI/Coding staff for physician review: CLINICAL INDICATORS - SIGNS / SYMPTOMS / LABS / RESULTS AND LOCATION IN MR *01/15 Consult (Artemio) Amiodarone was stopped due to poor appetite and GI upset and this seems to have improved. *02/16 Labor Representative Assessment (Ulices): BMI 20.0 Nutrition Dx: Malnutrition r/t loss of appetite As Evidenced By pt report of decreased PO intake in the last 1-2 months (unable to quantify d/t limited hx but suspect pt meeting <75% of estimated needs for >1 month) 10.9% weight loss in 1-2 months, moderate to severe muscle wasting and severe fat loss present suggestive of severe malnutrition in the context of acute illness. RISK FACTORS / RESULTS AND LOCATION IN MR *P 02/15 (Affram) HPI: presents from nursing facility. Hx of dementia, Afib on eliquis, recent CABG, cholecystitis. Had a GB drain placed on 01/25/2020. *02/16 Labor Representative Assessment (Ulices): Subjective: He had CABG done 1-2 months ago and says his appetite has declined since then TREATMENT / RESULTS AND LOCATION IN MR *02/16 Labor Representative Assessment (Elena): For 14-23 lb weight loss, poor appetite. (MST Score 3) *Order 02/16: Diet Supplement: Mighty Shake TID with meals *Order 02/16: Diet Supplement: Ensure Enlive Moderate Malnutrition (in acute illness) Energy Intake: <75% of estimated energy requirement for > 7 days Weight Loss: 1-2%/1 week; 5%/ 1 month; 7.5%/3 months Other: mild body fat loss; mild muscle mass loss; mild fluid accumulation; Severe Malnutrition (in acute illness) Energy Intake: = 50% of estimated energy requirement for = 5 days Weight Loss: >2%/1 week; >5%/1 month; >7.5%/3 months Other: moderate body fat loss; moderate muscle mass loss; moderate- severe fluid accumulation; measurably reduced item repair manager strength Moderate Malnutrition (in chronic illness) Energy Intake: <75% of estimated energy requirement for =1 month Weight Loss: 5%/1 month; 7.5%/3 months; 10%/6 months; 20%/1 year Other: mild body fat loss; mild muscle mass loss; mild fluid accumulation Severe Malnutrition (in chronic illness) Energy Intake: =75% of estimated energy requirement for =1 month Weight Loss: >5%/1 month; >7.5%/3 months; >10%/6 months; >20%/1 year Other: severe body fat loss; severe muscle mass loss; severe fluid accumulation; measurably reduced item repair manager strength Thank you, Cortney Pena RN, [email or web address] This is a permanent part of the Medical Record MTD
[2020-02-20] MEDS: Fludrocortisone Acetate 0.1 MG TAB PO SCH (14:17)
[2020-02-20] MEDS: Aspirin 81 mg Enteric Coated Tablet PO SCH (14:17)
--- NOTE | 2020-02-20 16:37 | CON ---
DATE OF CONSULTATION: 02/20/2020 REASON FOR CONSULTATION: Bacteremia. HISTORY OF PRESENT ILLNESS: A 74-year-old who has a history of bypass graft surgery at the end of December at [facility] and atrial fibrillation and dementia, probably vascular dementia, on , who was transferred from rehab unit. After discharged on January 19, the patient had to be readmitted to [facility] because of cholecystitis. It was managed with a percutaneous cholecystostomy placed on January 24 due to ineligibility for cholecystectomy. He had a thoracentesis for left-sided pleural effusion on January 27 and then eventually discharged to a custodial facility. On the day of admission, he fell and then he was having some chest pain. He was transferred because of that. One aspirin given on the way. BP was 90/55, and he was bradycardic, temperature 98, O2 saturations were 100. Chest x-ray with a small area of opacification in left lower lobe, either atelectases or early pneumonitis. 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 An attempt was made to transfer him back to [facility], but family insisted in being managed here. Bile duct contrast study through the cholecystostomy was done, which demonstrated patency of the cystic duct with possible narrowing in the distal CBD. So the plan is for patient to have an ERCP which I think is going to be carried out today or tomorrow. Currently, Mr. Vaughn is awake. He has a little bit of delusional thinking process. He knows he is in the hospital. He denies any headaches. No chest pain or abdominal pain. No genitourinary symptoms, voiding in the urinal. No joint symptoms. PAST MEDICAL HISTORY: Cognitive dysfunction, probably secondary to vascular dementia; coronary artery disease with bypass graft surgery; acute cholecystitis, managed with cholecystostomy. FAMILY HISTORY: CVA, diabetes mellitus. SOCIAL HISTORY: Never smoker. He is a retired marine. CURRENT MEDICATIONS: 1. Azithromycin. 2. Zosyn. 3. Vancomycin. PHYSICAL EXAMINATION: VITAL SIGNS: T-max 102 two days ago. He has been afebrile for the past 2 days. BP 130/60, heart rate 46, respiratory rate 14, O2 saturations 100. GENERAL: Appears in no distress. His midline sternotomy incision has healed, still a little bit dried up blood but no stitches, no felicitas in place. No inflammatory change or drainage noted. The patient has a peripheral IV access and is voiding in the urinal. No lymphadenopathy. HEENT: Ocular movements conjugate. Oral cavity with numerous teeth with no major decay noted. NECK: Supple. LUNGS: Symmetric air entry. No crackles or wheezing. HEART: S1, S2. Regular rate. No S3 or S4. ABDOMEN: Soft, flat, not distended. No ascites. No bladder distention. EXTREMITIES: Moves extremities equally. No edema. Pulses are diminished in dorsalis pedis. Cap refill is a little bit delayed. NEUROLOGIC: He is awake, knows his name. He knew he was in the hospital, could not tell me which. He does not acknowledge that he lives in a custodial and has a lot of delusional thinking process about being sponsored as a triathlete, etc., etc. LABORATORY DATA: White cell count 5.7 and now 4.9, hemoglobin is down to 7.5, MCV 92, platelets 148, 69% neutrophils. Sodium 138, creatinine 0.82, bilirubin went up to 1.3, is down to 1.0 at this time. AST was 329, is down now, and ALT went up to 317, is down to 82 at this point. Albumin 2.4. SARS-CoV PCR negative. Two sets of blood cultures, Citrobacter koseri with a broad susceptibility profile. IMAGING DATA: Include an abdomen and pelvis CT with a percutaneous cholecystostomy noted, thickening of the gallbladder wall, but no ductal dilatation noted. Chest x-ray with opacification in the left lower lobe, which is atelectasis versus pneumonia. ERCP, x-ray showed common duct is normal in caliber. Some filling defects in the midportion of common bile duct. No leakage. ASSESSMENT: Vascular dementia, coronary artery disease with recent bypass graft surgery, acute cholecystitis, managed with percutaneous cholecystostomy at [facility], readmission with likely cholangitis. May have had some transient obstruction of the cholecystostomy tube in the custodial, which led to decompensation. We will discontinue vancomycin and azithromycin and continue Zosyn. Eventual transition to oral quinolone for discharge planning. Duration of therapy around 2 weeks. He is at risk for developing liver abscess, though no obvious obstruction of the CBD is noted at this point in time. Job ID: [id number] [facility]ITAL[facility]
--- NOTE | 2020-02-20 17:42 | PDOC.HOSPP ---
- Subjective Subjective: LFT is trending down, s/p ERCP, no obvious obstruction. - Objective Vital Signs & Weight: Vital Signs (12 hours) Temp Pulse Ox 02/20/20 15:25 97.4 F L 02/20/20 13:32 97.2 F L 02/20/20 07:49 100 02/20/20 07:21 97.2 F L Weight Admit Weight 131 lb 6.4 oz Weight 131 lb 6.4 oz Most Recent Monitor Data Heart Rate from ECG 45 NIBP 118/70 NIBP BP-Mean 86 Respiration from ECG 15 SpO2 100 I&O: 02/19/20 02/20/20 02/21/20 06:59 06:59 06:59 Intake Total 3502 2020 Output Total 350 925 Balance 3152 1095 Result Diagrams: 02/20/20 03:22 02/20/20 03:22 Hospitalist ROS - Medication Medications: Active Medications Generic Name Dose Route Start Last Admin Trade Name Freq PRN Reason Stop Dose Admin Aspirin 81 mg 02/18/20 09:00 02/20/20 14:17 Aspirin 81 Mg Enteric Coated Tablet PO 81 mg DAILY JHONNY Administration Atorvastatin Calcium 20 mg 02/16/20 21:00 02/19/20 22:00 Atorvastatin Calcium 20 Mg Tab PO 20 mg HS JHONNY Administration Fludrocortisone Acetate 0.1 mg 02/17/20 09:00 02/20/20 14:17 Fludrocortisone Acetate 0.1 Mg Tab PO 0.1 mg DAILY JHONNY Administration Sodium Chloride 1,000 mls @ 100 mls/hr 02/18/20 00:45 02/20/20 14:17 Normal Saline 0.9% IV 1,000 mls .Q10H JHONNY Administration Piperacillin Sod/Tazobactam 100 mls @ 200 mls/hr 02/18/20 22:00 02/20/20 14:16 Sod 4.5 gm/ Sodium Chloride IVPB 100 mls Q8HR JHONNY Administration Midodrine 10 mg 02/17/20 15:00 02/20/20 14:18 Midodrine Hcl 5 Mg Tab PO 10 mg TID JHONNY Administration - Exam General Appearance: NAD Eye: PERRL ENT: normocephalic atraumatic Neck: supple Heart: RRR Respiratory: CTAB Gastrointestinal: soft, non-tender Extremities: no cyanosis Skin: normal turgor Neurological: cranial nerve grossly intact Musculoskeletal: normal tone Hosp A/P - Plan The patient is a pleasant 74 years old gentleman who has significant past medical history of atrial fib on Eliquis for stroke prophylaxis, dyslipide jt CAD with status post recent four-vessel CABG in early January. Postoperatively, complicated with cholecystitis; however, patient was deemed not a candidate for surgery. Ultimately, patient had a cholecystectomy tube placed at [facility]. He subsequently discharged to a [facility] for rehab, patient presented to ER with complaint of chest pain, and s/p fall. Patient declined to go back to [facility], ultimately he was admitted for further work-up Sepsis - poa --cont IV abx, follow rpt blood culture --pt has hx of low BP at baseline Citrobacter bacteremia - likely related to indwelling cholecystectomy tube as a possible source --cont Zosyn for now, transition to PO Levaquin upon discharge --follow rpt BCx to document clearance Elevated LFT --likely d/t transient obstruction of CBD, s/p ERCP --follow up LFT Hx cholecystitis with s/p cholecystectomy drain placement at [facility] --GI is following. Pt was deemed not a candidate for surgery CAD with s/p recent CABG in January at [facility] --cont home meds as able --cont ASA/Statin, consider holding statin if LFT is trending upward although LFT elevated likely d/t biliary source in appropriate setting --BP and HR too low for BB Chest discomfort --pt was evaluated by cardiology PAF --rate controlled. Eliquis is on hold for procedure Hypotension --cont home medications Midodrine and Florinef
[2020-02-20] MEDS: Atorvastatin Calcium 20 MG TAB PO SCH (20:49)
[2020-02-21] MEDS: Sodium Chloride 0.9% 1,000 ML IV SCH ×3 (00:44→17:18)
[2020-02-21 04:10] LABS: ALT (SGPT) 65 U/L (8-55); AST (SGOT) 28 U/L (5-34); Albumin 2.5 g/dL (3.4-4.8); Alkaline Phosphatase 200 U/L (40-110); Anion Gap 13 mmol/L (10-20); BUN (Urea Nitrogen) 24 mg/dL (8.4-25.7); Bilirubin, Total 0.7 mg/dL (0.2-1.2); Calc. Creatinine Clearance 50 mL/min (70-130); Calcium 7.8 mg/dL (7.8-10.44); Carbon Dioxide 19 mmol/L (23-31); Chloride 108 mmol/L (98-107); Estimated GFR-MDRD 69; Globulin 2.5 g/dL (2.4-3.5); Glucose 153 mg/dL (83-110); Potassium 4.5 mmol/L (3.5-5.1); Sodium 135 mmol/L (136-145)
[2020-02-21] MEDS: Piperacillin/Tazobactam 4.5 GM in Sodium Chloride 0.9% 100 ML IVPB SCH ×2 (05:50→14:17)
[2020-02-21] MEDS: Midodrine HCl 5 MG TAB PO SCH ×3 (08:05→20:21)
[2020-02-21] MEDS: Fludrocortisone Acetate 0.1 MG TAB PO SCH (08:05)
[2020-02-21] MEDS: Aspirin 81 mg Enteric Coated Tablet PO SCH (08:05)
[2020-02-21 08:08] LABS: #Lymphocytes 0.8 thou/uL (1.20-3.40); #Monocytes 0.2 thou/uL (0.11-0.59); %Basophils 0.1 % (0.0-1.0); %Eosinophils 0.8 % (0.0-10.0); %Lymphocytes 15.8 % (21.0-51.0); %Monocytes 3.6 % (0.0-10.0); %Neutrophils 79.7 % (42.0-75.0); Hemoglobin 9.5 g/dL (14.0-18.0); Mean Corpuscular HGB CONC 32.4 g/dL (32.0-36.0); Mean Corpuscular Hemoglobin 29.2 pg (27.0-31.0); Mean Corpuscular Volume 90.1 fL (78.0-98.0); Mean Platelet Volume 7.3 fL (7.4-10.4); Platelet Count 213 thou/uL (130-400); RBC Distribution Width 13.9 % (11.5-14.5); Red Blood Cell (RBC) Count 3.24 mill/uL (4.70-6.10); White Blood Cell (WBC) Count 5.1 thou/uL (4.8-10.8)
--- NOTE | 2020-02-21 12:00 | PQF ---
CLINICAL DOCUMENTATION CLARIFICATION FORM: Dear Dr. Capone Date: 02/21/2020 Please exercise your independent, professional judgment in responding to the clarification form. Clinical indicators are provided on the bottom of this form for your review. Please check appropriate box(es): [X ] Sepsis due to Citrobacter bacteremia due to indwelling cholecystectomy tube [ ] Sepsis due to Citrobacter bacteremia not due to indwelling cholecystectomy tube [ ] Sepsis due to other: [ ] Other diagnosis [ ] Unable to determine In addition, please specify: Present on Admission (POA): [ X ] Yes [ ] No [ ] Unable to determine For continuity of documentation, please document condition throughout progress notes and discharge summary. Thank You. To be completed by CDI/Coding staff for physician review: CLINICAL INDICATORS - SIGNS / SYMPTOMS / LABS / RESULTS AND LOCATION IN MR *ER Record 02/15: VS: BP 94/55, MAP 68, Pulse 58, resp. 20, Temp. 97.9 *02/16 pn (Affram) A/P: - Sepsis. Hypotension with Citrobacter growing in blood. -Citrobacter bacteremia -S/p gallbladder drain tube. *02/17 Brief pn ([facility]) Code green called about 7pm for sepsis alert. Pt was more drousy with temp up to 102 *02/19 pn (Le) A/P: Sepsis - poa Citrobacter bacteremia - likely related to indwelling cholecystectomy tube as a possible source. RISK FACTORS / RESULTS AND LOCATION IN MR *H&P 02/15 ([facility]) HPI: presents from nursing facility. Hx of dementia, Afib on eliquis, recent CABG, cholecystitis. Had a GB drain placed on 01/25/2020. *02/16 pn (Affram) A/P: Citrobacter bacteremia. S/p gallbladder drain tube. TREATMENTS / RESULTS AND LOCATION IN MR *02/17 Brief pn (Affram) Antibiotics changed from cefepime to zosyn and vancomycin. new blood cx's drawn. 500ml NS bolus and continue on 100 ID Consult 02/19. Assessment: We will discontinue vancomycin and azithromycin and continue Zosyn Thank you, Cortney Pena RN, [email or web address] This is a permanent part of the Medical Record [facility]
--- NOTE | 2020-02-21 17:45 | PDOC.HOSPP ---
- Subjective Subjective: pt was seen and examined, intermittently confused. LFT trending down. no fever - Objective Vital Signs & Weight: Vital Signs (12 hours) Temp Pulse Pulse Pulse BP BP BP 02/21/20 15:14 97.7 F 02/21/20 11:03 97.0 F L 02/21/20 08:55 52 L 60 50 L 120/73 89/54 L 101/57 L 02/21/20 07:35 02/21/20 07:08 97.5 F L Pulse Ox 02/21/20 15:14 02/21/20 11:03 02/21/20 08:55 02/21/20 07:35 98 02/21/20 07:08 Weight Admit Weight 131 lb 6.4 oz Weight 131 lb 6.4 oz Most Recent Monitor Data Heart Rate from ECG 49 NIBP 125/64 NIBP BP-Mean 84 Respiration from ECG 0 SpO2 100 I&O: 02/20/20 02/21/20 02/22/20 06:59 06:59 06:59 Intake Total 2019 4240 Output Total 925 1285 50 Balance 1095 2955 -50 Result Diagrams: 02/21/20 07:56 02/21/20 03:26 Additional Labs: Accuchecks 02/21/20 05:30 POC Glucose 124 H Radiology Reviewed by me: Yes Hospitalist ROS - Medication Medications: Active Medications Generic Name Dose Route Start Last Admin Trade Name Freq PRN Reason Stop Dose Admin Aspirin 81 mg 02/18/20 09:00 02/21/20 08:05 Aspirin 81 Mg Enteric Coated Tablet PO 81 mg DAILY JHONNY Administration Atorvastatin Calcium 20 mg 02/16/20 21:00 02/20/20 20:49 Atorvastatin Calcium 20 Mg Tab PO 20 mg HS JHONNY Administration Fludrocortisone Acetate 0.1 mg 02/17/20 09:00 02/21/20 08:05 Fludrocortisone Acetate 0.1 Mg Tab PO 0.1 mg DAILY JHONNY Administration Sodium Chloride 1,000 mls @ 100 mls/hr 02/18/20 00:45 02/21/20 17:18 Normal Saline 0.9% IV 1,000 mls .Q10H JHONNY Administration Midodrine 10 mg 02/17/20 15:00 02/21/20 14:18 Midodrine Hcl 5 Mg Tab PO 10 mg TID JHONNY Administration - Exam General Appearance: NAD Eye: PERRL ENT: normocephalic atraumatic Neck: supple Heart: RRR Respiratory: CTAB Gastrointestinal: soft Extremities: no cyanosis Skin: normal turgor Hosp A/P - Plan The patient is a pleasant 74 years old gentleman who has significant past medical history of atrial fib on Eliquis for stroke prophylaxis, dyslipidemia CAD with status post recent four-vessel CABG in early January. Postoperatively, complicated with cholecystitis; however, patient was deemed not a candidate for surgery. Ultimately, patient had a cholecystectomy tube placed at [facility]. He subsequently discharged to a [place] for rehab, patient presented to ER with complaint of chest pain, and s/p fall. Patient declined to go back to [facility], ultimately he was admitted for further work-up Sepsis - poa. Resolved. --cont IV abx, follow rpt blood culture --pt has hx of low BP at baseline --transfer to [facility] Citrobacter bacteremia - likely related to indwelling cholecystectomy tube as a possible source --transition to PO Levaquin --rpt BCx no growth. Appreciate ID input Elevated LFT - trending down. --likely d/t transient obstruction of CBD, s/p ERCP --follow up LFT Hx cholecystitis with s/p cholecystectomy drain placement at [facility] --GI is following. Pt was deemed not a candidate for surgery CAD with s/p recent CABG in January at [facility] --cont home meds as able --cont ASA/Statin --BP and HR too low for BB Chest discomfort --pt was evaluated by cardiology PAF --rate controlled. Eliquis was on hold for procedure Hypotension -resolved --cont home medications Midodrine and Florinef
[2020-02-21] MEDS: Atorvastatin Calcium 20 MG TAB PO SCH (20:21)
--- NOTE | 2020-02-21 22:12 | PRG ---
DATE OF SERVICE: 02/21/2020 REASON FOR CONSULTATION: Elevated LFTs with possible common bile duct obstruction. SUBJECTIVE: The patient underwent ERCP yesterday with findings of a dilated common bile duct, but no obvious filling defects contributing to the dilation of the duct. In the post procedure period, the patient denies any pain consistent with post ERCP pancreatitis. In fact, the patient states that he is doing well with no complaints at all and currently denies any nausea, vomiting, fevers, chills, abdominal pain, hematemesis, melena, or hematochezia. He does have some mild abdominal discomfort around the cholecystostomy site, but this has been chronic in nature since its placement. OBJECTIVE: VITAL SIGNS: Temperature 97.2, pulse 47, blood pressure 125/64, respiratory rate 10, saturating 100% on room air. GENERAL: The patient was lying in bed, in no acute distress. Alert and oriented x3. CARDIOVASCULAR: Regular rate and rhythm. RESPIRATORY: Clear to auscultation bilaterally. ABDOMEN: Normoactive bowel sounds. Soft, nontender, nondistended. Cholecystostomy tube seen emanating from the right subcostal region with yellowish-greenish fluid within the drain itself and in the tubing. EXTREMITIES: No cyanosis, clubbing, or edema. LABORATORY DATA: CBC with a white blood cell count of 5.1, hemoglobin 9.5, hematocrit 29.2, platelets 213. Chemistry with a sodium of 135, potassium 4.5, chloride 108, CO2 19, BUN 24, creatinine 1.05, glucose 153, AST 28, ALT 65, alkaline phosphatase 200, total bilirubin 0.7. IMAGING DATA: ERCP was performed on February 20, 2020, which showed a common bile duct measuring approximately 9 mm in size with an intact gallbladder with a normal common hepatic duct and no obvious filling defects. The intrahepatic ducts were also seen during that examination that were normal in character. A sphincterotomy was performed as part of the ERCP with multiple balloon sweeps with a 12 mm balloon through the common hepatic and common bile duct with no evidence of stones or microlithiasis. ASSESSMENT AND PLAN: The patient is a 74-year-old male with past medical history of dementia; atrial fibrillation on chronic anticoagulation with Eliquis; hyperlipidemia; recent coronary artery bypass graft x4 that was complicated with cholecystitis and intervened upon with a cholecystostomy tube, now presenting with elevated liver function tests with continued cholecystostomy tube in place. Elevated liver function tests. The patient initially presented with a history of having a four vessel coronary artery bypass grafting that was further complicated by cholecystitis approximately 2 or 3 weeks later. Given the patient's debilitated status at the time, a cholecystostomy tube was placed and since that time, the patient has had the cholecystostomy tube draining yellowish-greenish fluid with no evidence of purulence or blood per review of the patient's chart. During this hospitalization, the patient was noted to have a significant elevation in AST, ALT, and alkaline phosphatase concerning for possible biliary obstruction, so he underwent endoscopic retrograde cholangiopancreatography on February 20, 2020, with dilation of the common bile duct to 9 mm in size, but no obvious filling defect, stones, or stricture/stenosis noted. A sphincterotomy was performed and in the post endoscopic retrograde cholangiopancreatography period, his liver function tests continued to downtrend and there was no evidence of post endoscopic retrograde cholangiopancreatography pancreatitis. At this time, the etiology of his elevated liver function tests could have been due to an obstructive-type process in the common bile duct, although with the endoscopic retrograde cholangiopancreatography showing no obvious filling defects and makes it less likely. Ampullary stenosis is also within the differential causing possible elevated liver function tests in an obstructive-type pattern. However, again since endoscopic retrograde cholangiopancreatography, his liver function tests are downtrending and have almost normalized in some cases with the patient not experiencing any additional abdominal pain and with downtrending liver function tests. The only question that is left is whether or not the cholecystostomy tube should remain in place or the patient should proceed with cholecystectomy as initially planned. RECOMMENDATIONS: 1. We would continue to trend the patient's LFTs daily for signs of worsening inflammation. 2. Continue to hold anticoagulation for 24 more hours given the sphincterotomy performed yesterday, then restart if clinically appropriate. 3. We would defer to General Surgery Service as to timing of cholecystectomy. 4. Continue the patient on Zosyn per Infectious Disease recommendations. 5. At this time, we have no additional recommendations and will and we will sign off at this time. Please call with any additional questions. Job ID: [id number]
[2020-02-22 03:32] LABS: #Lymphocytes 1.2 thou/uL (1.20-3.40); #Monocytes 0.3 thou/uL (0.11-0.59); #Neutrophils 4.9 thou/uL (1.40-6.50); %Basophils 0.4 % (0.0-1.0); %Eosinophils 0.6 % (0.0-10.0); %Lymphocytes 17.9 % (21.0-51.0); %Neutrophils 76.2 % (42.0-75.0); Hemoglobin 8.2 g/dL (14.0-18.0); Mean Corpuscular HGB CONC 32.5 g/dL (32.0-36.0); Mean Corpuscular Hemoglobin 29.5 pg (27.0-31.0); Mean Corpuscular Volume 90.6 fL (78.0-98.0); Mean Platelet Volume 6.7 fL (7.4-10.4); Platelet Count 224 thou/uL (130-400); RBC Distribution Width 13.9 % (11.5-14.5); White Blood Cell (WBC) Count 6.4 thou/uL (4.8-10.8)
[2020-02-22 03:55] LABS: ALT (SGPT) 48 U/L (8-55); AST (SGOT) 21 U/L (5-34); Albumin 2.4 g/dL (3.4-4.8); Alkaline Phosphatase 145 U/L (40-110); Anion Gap 11 mmol/L (10-20); BUN (Urea Nitrogen) 24 mg/dL (8.4-25.7); Bilirubin, Total 0.6 mg/dL (0.2-1.2); Calc. Creatinine Clearance 59 mL/min (70-130); Calcium 7.6 mg/dL (7.8-10.44); Carbon Dioxide 19 mmol/L (23-31); Chloride 109 mmol/L (98-107); Estimated GFR-MDRD 82; Globulin 2.2 g/dL (2.4-3.5); Glucose 102 mg/dL (83-110); Potassium 3.8 mmol/L (3.5-5.1); Protein, Total 4.6 g/dL (5.8-8.1); Sodium 135 mmol/L (136-145)
[2020-02-22] MEDS: Sodium Chloride 0.9% 1,000 ML IV SCH (06:22)
[2020-02-22] MEDS ORDERED: Sodium Chloride 0.9% 1,000 ML IV SCH (08:19)
[2020-02-22] MEDS ORDERED: Potassium Chloride 20 MEQ TAB PO SCH (08:30)
[2020-02-22] MEDS ORDERED: Furosemide 20 MG/2 ML VIAL SLOW IVP SCH (08:30)
--- NOTE | 2020-02-22 08:36 | EKG ---
Test Reason : Blood Pressure : / mmHG Vent. Rate : 112 BPM Atrial Rate : 110 BPM P-R Int : 000 ms QRS Dur : 096 ms QT Int : 282 ms P-R-T Axes : 000 -29 144 degrees QTc Int : 384 ms Accelerated Junctional rhythm Abnormal ECG Confirmed by ANA MARÍA WILLIS MD ([id number]) on 02/22/2020 8:36:20 AM Referred By: Confirmed By:ANA MARÍA WILLIS MD
--- NOTE | 2020-02-22 08:37 | EKG ---
Test Reason : Blood Pressure : / mmHG Vent. Rate : 095 BPM Atrial Rate : 095 BPM P-R Int : 228 ms QRS Dur : 096 ms QT Int : 346 ms P-R-T Axes : 061 -34 120 degrees QTc Int : 434 ms Poor data quality, interpretation may be adversely affected Sinus rhythm with 1st degree A-V block Left axis deviation T wave abnormality, consider lateral ischemia Abnormal ECG Confirmed by LAZARO MARIN, ANA MARÍA ([id number]) on 02/22/2020 8:36:26 AM Referred By: Confirmed By:ANA MARÍA WILLIS MD
[2020-02-22] MEDS: Midodrine HCl 5 MG TAB PO SCH ×3 (09:29→20:13)
[2020-02-22] MEDS: Aspirin 81 mg Enteric Coated Tablet PO SCH (09:29)
[2020-02-22] MEDS: Fludrocortisone Acetate 0.1 MG TAB PO SCH (09:29)
--- NOTE | 2020-02-22 17:33 | PRG ---
DATE OF SERVICE: 02/22/2020 SUBJECTIVE: Mr. Vaughn is doing well. He has been afebrile. He is tolerating his diet. His liver function tests have returned to normal. His transaminases are normal. Dr. Luciano Horn performed the ERCP and sphincterotomy without findings of choledocholithiasis. There were no filling abnormalities. At this point, I would recommend removal of his gallbladder drain. His drain has put out 150 the last 24 hours with a patent biliary tree and a sphincterotomy. This should resolve without problems. I would place a dressing over the tube entrance site. This should dry and heal without problems. I will see him in the office as needed. I do not think cholecystectomy is indicated as the cholecystostomy tube was placed post coronary artery bypass grafting without cholelithiasis based on a distended gallbladder. Job ID: [id number]
--- NOTE | 2020-02-22 17:40 | PDOC.HOSPP ---
- Subjective Subjective: c/o swelling on extremities. Denies of SOB. pending tele beds. HR sometimes dipped down to high 30s overnight, but asymptomatic. d/w Dr. Ulloa, will d/c IVF, start diuresis. Amiodarone (home med, not resumed) needs to discontinue at discharge. d/w Dr. Houston, who removed the cholecystectomy tube, follow up with him as outpatient as prn. - Objective Vital Signs & Weight: Vital Signs (12 hours) Temp Pulse Pulse Resp BP BP Pulse Ox 02/22/20 17:30 15 98 02/22/20 16:16 16 100 02/22/20 15:45 53 L 52 L 119/63 117/77 02/22/20 15:14 97.0 F L 02/22/20 14:45 98 02/22/20 14:02 100 02/22/20 12:46 99 02/22/20 11:45 97.6 F 02/22/20 09:00 99 02/22/20 08:00 98 02/22/20 07:15 97.0 F L Weight Admit Weight 131 lb 6.4 oz Weight 131 lb 6.4 oz Most Recent Monitor Data Heart Rate from ECG 48 NIBP 119/63 NIBP BP-Mean 81 Respiration from ECG 24 SpO2 100 I&O: 02/21/20 02/22/20 02/23/20 06:59 06:59 06:59 Intake Total 4240 3200 Output Total 1285 1100 975 Balance 2955 2100 -975 Result Diagrams: 02/22/20 03:18 02/22/20 03:18 Radiology Reviewed by me: Yes EKG Reviewed by me: Yes Hospitalist ROS - Medication Medications: Active Medications Generic Name Dose Route Start Last Admin Trade Name Freq PRN Reason Stop Dose Admin Aspirin 81 mg 02/18/20 09:00 02/22/20 09:29 Aspirin 81 Mg Enteric Coated Tablet PO 81 mg DAILY JHONNY Administration Atorvastatin Calcium 20 mg 02/16/20 21:00 02/21/20 20:21 Atorvastatin Calcium 20 Mg Tab PO 20 mg HS JHONNY Administration Fludrocortisone Acetate 0.1 mg 02/17/20 09:00 02/22/20 09:29 Fludrocortisone Acetate 0.1 Mg Tab PO 0.1 mg DAILY JHONNY Administration Levofloxacin 750 mg 02/22/20 06:00 02/22/20 06:29 Levofloxacin 750 Mg Tab PO 750 mg 0600 JHONNY Administration Midodrine 10 mg 02/17/20 15:00 02/22/20 14:44 Midodrine Hcl 5 Mg Tab PO 10 mg TID JHONNY Administration - Exam General Appearance: NAD Eye: PERRL ENT: normocephalic atraumatic Neck: supple Heart: RRR Respiratory: CTAB Gastrointestinal: soft, non-tender Extremities: no cyanosis, no clubbing, 1+ LE edema Skin: normal turgor Neurological: cranial nerve grossly intact Musculoskeletal: normal tone Psychiatric: normal affect, normal behavior, A&O x 3 Hosp A/P - Plan The patient is a pleasant 74 years old gentleman who has significant past medical history of atrial fib on Eliquis for stroke prophylaxis, dyslipidemia CAD with status post recent four-vessel CABG in early January. Postoperatively, complicated with cholecystitis; however, patient was deemed not a candidate for surgery. Ultimately, patient had a cholecystectomy tube placed at [facility]. He subsequently discharged to a [facility] for rehab, yadira fraga presented to ER with complaint of chest pain, and s/p fall. Patient declined to go back to [facility], ultimately he was admitted for further work-up Sepsis - poa. Resolved. --changed IV abx to Levaquin. rpt cultures no growth --pending tele bed. Citrobacter bacteremia - likely related to indwelling cholecystectomy tube as a possible source --transition to PO Levaquin --rpt BCx no growth. Appreciate ID input Elevated LFT - normalized --likely d/t transient obstruction of CBD, s/p ERCP with sphincterectomy --LFT normalized Hx cholecystitis with s/p cholecystectomy drain placement at [facility] --d/w Dr. Houston, d/c cholecystectomy tube. follow up with him as outpatient prn basis CAD with s/p recent CABG in January at [facility] --cont home meds as able --cont ASA/Statin --BP and HR too low for BB. 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 IV Lasix x 1 per cardiology Chest discomfort --pt was evaluated by cardiology PAF --rate controlled. Resume Eliquis. Pt was started on Amiodarone post CABG, but no longer need it. Will need to discontinue it from his home med list upon discharge Hypotension -resolved --cont home medications Midodrine and Florinef Disposition: Return to [facility] for further PT. CM consulted.
[2020-02-22] MEDS: Atorvastatin Calcium 20 MG TAB PO SCH (20:13)
[2020-02-22] MEDS: Apixaban 2.5 MG TAB PO SCH (20:14)
[2020-02-23] MEDS: Apixaban 2.5 MG TAB PO SCH ×2 (09:00→20:32)
[2020-02-23] MEDS: Aspirin 81 mg Enteric Coated Tablet PO SCH (09:00)
[2020-02-23] MEDS: Midodrine HCl 5 MG TAB PO SCH ×3 (09:00→20:32)
[2020-02-23] MEDS: Fludrocortisone Acetate 0.1 MG TAB PO SCH (09:00)
--- NOTE | 2020-02-23 11:50 | PDOC.CPN ---
- Subjective Date: 02/23/20 Time: 13:47 Interval history: No complaints - Objective Allergies/Adverse Reactions: Allergies Allergy/AdvReac Type Severity Reaction Status Date / Time No Known Drug Allergies Allergy Verified 02/16/20 13:47 Visit Medications: Current Medications Apixaban (Apixaban 2.5 Mg Tab) 2.5 mg PO BID [facility] Last Admin: 02/23/20 09:00 Dose: 2.5 mg Documented by: Aspirin (Aspirin 81 Mg Enteric Coated Tablet) 81 mg PO DAILY [facility] Last Admin: 02/23/20 09:00 Dose: 81 mg Documented by: Atorvastatin Calcium (Atorvastatin Calcium 20 Mg Tab) 20 mg PO HS [facility] Last Admin: 02/22/20 20:13 Dose: 20 mg Documented by: Fludrocortisone Acetate (Fludrocortisone Acetate 0.1 Mg Tab) 0.1 mg PO DAILY S Last Admin: 02/23/20 09:00 Dose: 0.1 mg Documented by: Levofloxacin (Levofloxacin 750 Mg Tab) 750 mg PO 0600 [facility] Last Admin: 02/23/20 06:54 Dose: 750 mg Documented by: Midodrine (Midodrine Hcl 5 Mg Tab) 10 mg PO TID [facility] Last Admin: 02/23/20 09:00 Dose: 10 mg Documented by: Nitroglycerin (Nitroglycerin 0.4 Mg Tab 1 Each) 0.4 mg SL Q5MIN PRN PRN Reason: Chest Pain Ondansetron HCl (Ondansetron Odt 4 Mg Tab) 4 mg SL Q8H PRN PRN Reason: Nausea/Vomiting Vital Signs & Weight: Vital Signs Temp Pulse Ox 02/23/20 09:06 98 02/23/20 07:39 100 02/23/20 07:09 97.2 F L 02/23/20 03:37 97.2 F L Admit Weight 131 lb 6.4 oz Weight 131 lb 6.4 oz - Physical Exam General: alert & oriented x3 Neck: no masses, no bruit Cardiac: no murmur, regular rate, regular rhythm Lungs: normal exam - Labs Result Diagrams: 02/22/20 03:18 02/22/20 03:18 Troponin/CKMB CK-MB (CK-2) 1.4 ng/mL (0-6.6) 02/16/20 08:30 Troponin I 0.020 ng/mL (< 0.028) 02/18/20 18:02 - Assessment/Plan Assessment/Plan: Bradycardia Sespsis CAD s/p CABG January () Cardiomyopathy (40-45%) Post op afib dc amiodarone statin, BB IA and PT
--- NOTE | 2020-02-23 14:30 | PDOC.HOSPP ---
- Subjective Encounter Date: 02/23/20 Encounter Time: 11:20 Subjective: Patient appears comfortable. He has a good conversation and almost meaningful. He is alert oriented x3. However he does have a history of dementia he states that he lives locally with his . Care discussed with RN. - Objective Vital Signs & Weight: Vital Signs (12 hours) Temp Pulse Ox 02/23/20 09:06 98 02/23/20 07:39 100 02/23/20 07:09 97.2 F L 02/23/20 03:37 97.2 F L Weight Admit Weight 131 lb 6.4 oz Weight 131 lb 6.4 oz Most Recent Monitor Data Heart Rate from ECG 53 NIBP 95/62 NIBP BP-Mean 73 Respiration from ECG 17 SpO2 96 I&O: 02/22/20 02/23/20 02/24/20 06:59 06:59 06:59 Intake Total 3200 940 Output Total 1100 1495 Balance 2100 -555 Result Diagrams: 02/22/20 03:18 02/22/20 03:18 Hospitalist ROS - Medication Medications: Active Medications Generic Name Dose Route Start Last Admin Trade Name Omidq PRN Reason Stop Dose Admin Apixaban 2.5 mg 02/22/20 21:00 02/23/20 09:00 Apixaban 2.5 Mg Tab PO 2.5 mg BID JHONNY Administration Aspirin 81 mg 02/18/20 09:00 02/23/20 09:00 Aspirin 81 Mg Enteric Coated Tablet PO 81 mg DAILY JHONNY Administration Atorvastatin Calcium 20 mg 02/16/20 21:00 02/22/20 20:13 Atorvastatin Calcium 20 Mg Tab PO 20 mg HS JHONNY Administration Fludrocortisone Acetate 0.1 mg 02/17/20 09:00 02/23/20 09:00 Fludrocortisone Acetate 0.1 Mg Tab PO 0.1 mg DAILY JHONNY Administration Levofloxacin 750 mg 02/22/20 06:00 02/23/20 06:54 Levofloxacin 750 Mg Tab PO 750 mg 0600 JHONNY Administration Midodrine 10 mg 02/17/20 15:00 02/23/20 09:00 Midodrine Hcl 5 Mg Tab PO 10 mg TID JHONNY Administration - Exam General Appearance: NAD, awake alert Eye: PERRL, anicteric sclera ENT: normocephalic atraumatic Neck: supple Heart: RRR Respiratory: CTAB, normal chest expansion Gastrointestinal: soft, normal bowel sounds Neurological: no focal deficits Psychiatric: A&O x 3 Hosp A/P - Plan 74 years old gentleman who has significant past medical history of atrial fib on Eliquis for stroke prophylaxis, dyslipidemia CAD with status post recent four-vessel CABG in early January. Postoperatively, complicated with cholecystitis; however, patient was deemed not a candidate for surgery. Ultimately, patient had a cholecystectomy tube placed at [facility]. He subsequently discharged to a [facility] for rehab, patient presented to ER with complaint of chest pain, and s/p fall. Patient declined to go back to [facility], ultimately he was admitted for further work-up Sepsis - poa. Resolved. -Cultures negative and he is on Levaquin.. Citrobacter bacteremia - likely related to indwelling cholecystostomy tube as a possible source --transition to PO Levaquin --rpt BCx no growth. Appreciate ID input Elevated LFT - normalized --likely d/t transient obstruction of CBD, s/p ERCP with sphincterectomy --LFT normalized Hx cholecystitis with s/p cholecystectomy drain placement at [facility] -ERCP showed common bile duct in normal caliber with a filling defect in the m id part of the common bile duct --d/w Dr. Houston, d/c cholecysttostomy tube. follow up with him as outpatient prn basis --gallbladder drain removed. No indication for cholecystectomy as cystostomy tube placed for gallbladder distention and not far cholecystitis Gallbladder distention possibly due to cholelithiasis post coronary artery bypass graft CAD with s/p recent CABG in January at [facility] --cont ASA/Statin --BP and HR too low for BB.-------------> discontinued amiodarone.-->Started back on blood beta-tapan. 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 IV Lasix x 1 per cardiology PAF Post CABG A. fib --rate controlled. Resume Eliquis. Hypotension -resolved --cont home medications Midodrine and Florinef Vascular dementia -Supportive measures DVT prophylaxis on Eliquis. Disposition: Return to [facility] for further PT. CM consulted. Plan for discharge on Tuesday to [facility]. With 2-week course of Levaquin for acute cholecystitis, status post cholecystectomy drain placement and removal.. Follow-up with Dr. Stokes as needed.
[2020-02-23] MEDS: Atorvastatin Calcium 20 MG TAB PO SCH (20:32)
[2020-02-24] MEDS: Midodrine HCl 5 MG TAB PO SCH ×3 (08:53→20:25)
[2020-02-24] MEDS: Aspirin 81 mg Enteric Coated Tablet PO SCH (08:53)
[2020-02-24] MEDS: Apixaban 2.5 MG TAB PO SCH ×2 (08:53→20:24)
[2020-02-24] MEDS: Fludrocortisone Acetate 0.1 MG TAB PO SCH (08:53)
--- NOTE | 2020-02-24 14:14 | PDOC.CPN ---
- Subjective Date: 02/24/20 Time: 13:00 Interval history: Patient without complaints. No overnight events. - Review of Systems General: denies: fever/chills, weight/appetite/sleep changes, night sweats, fatigue Respiratory: denies: cough, congestion, shortness of breath, exercise intolerance Cardiovascular: denies: chest pain, palpitation, edema, paroxysmal nocturnal dyspnea, orthopnea Gastrointestinal: denies: nausea, vomiting, diarrhea, constipation, abd pain, GI bleeding Musculoskeletal: denies: pain, tenderness, stiffness, swelling, arthritis/arth ralgias Neurological: denies: numbness, syncope, seizure, weakness - Objective Allergies/Adverse Reactions: Allergies Allergy/AdvReac Type Severity Reaction Status Date / Time No Known Drug Allergies Allergy Verified 02/16/20 13:47 Visit Medications: Current Medications Apixaban (Apixaban 2.5 Mg Tab) 2.5 mg PO BID [facility] Last Admin: 02/24/20 08:53 Dose: 2.5 mg Documented by: Aspirin (Aspirin 81 Mg Enteric Coated Tablet) 81 mg PO DAILY [facility] Last Admin: 02/24/20 08:53 Dose: 81 mg Documented by: Atorvastatin Calcium (Atorvastatin Calcium 20 Mg Tab) 20 mg PO HS [facility] Last Admin: 02/23/20 20:32 Dose: 20 mg Documented by: Fludrocortisone Acetate (Fludrocortisone Acetate 0.1 Mg Tab) 0.1 mg PO DAILY [facility] Last Admin: 02/24/20 08:53 Dose: 0.1 mg Documented by: Midodrine (Midodrine Hcl 5 Mg Tab) 10 mg PO TID [facility] Last Admin: 02/24/20 08:53 Dose: 10 mg Documented by: Nitroglycerin (Nitroglycerin 0.4 Mg Tab 1 Each) 0.4 mg SL Q5MIN PRN PRN Reason: Chest Pain Ondansetron HCl (Ondansetron Odt 4 Mg Tab) 4 mg SL Q8H PRN PRN Reason: Nausea/Vomiting Vital Signs & Weight: Vital Signs Temp Pulse Pulse Pulse Pulse Resp BP 02/24/20 11:55 98.0 F 51 L 14 02/24/20 10:04 65 65 61 119/63 02/24/20 08:53 02/24/20 08:46 97.8 F 55 L 16 02/24/20 03:13 97.8 F 60 16 BP BP BP Pulse Ox 02/24/20 11:55 116/62 98 02/24/20 10:04 119/63 130/62 02/24/20 08:53 95 02/24/20 08:46 127/57 L 95 02/24/20 03:13 116/56 L 95 Admit Weight 131 lb 6.4 oz Weight 131 lb 6.4 oz - Physical Exam General: alert & oriented x3, appears well, no apparent distress Neck: supple neck Cardiac: regular rate and rhythm Lungs: clear to auscultation Neuro: grossly intact Abdomen: soft, non-tender Skin: clear Musculoskeletal: no pain - Labs Result Diagrams: 02/22/20 03:18 02/22/20 03:18 Troponin/CKMB CK-MB (CK-2) 1.4 ng/mL (0-6.6) 02/16/20 08:30 Troponin I 0.020 ng/mL (< 0.028) 02/18/20 18:02 - Assessment/Plan Assessment/Plan: 1. Sepsis 2. Bradycardia 3. CAD s/p CABG January ([employer]) 4. Cardiomyopathy (40-45%) 5. Post op afib Doing well from CV standpoint. No changes today.
--- NOTE | 2020-02-24 14:24 | PDOC.HOSPP ---
- Subjective Encounter Date: 02/24/20 Encounter Time: 11:20 Subjective: Patient denies any chest pain or are short of breath. Monitor shows Mobitz type II AV block. Cardiology has been notified. Electrolytes seems to be in the normal range including mag level. - Objective Vital Signs & Weight: Vital Signs (12 hours) Temp Pulse Pulse Pulse Pulse Resp BP 02/24/20 11:55 98.0 F 51 L 14 02/24/20 10:04 65 65 61 119/63 02/24/20 08:53 02/24/20 08:46 97.8 F 55 L 16 02/24/20 03:13 97.8 F 60 16 BP BP BP Pulse Ox 02/24/20 11:55 116/62 98 02/24/20 10:04 119/63 130/62 02/24/20 08:53 95 02/24/20 08:46 127/57 L 95 02/24/20 03:13 116/56 L 95 Weight Admit Weight 131 lb 6.4 oz Weight 131 lb 6.4 oz Most Recent Monitor Data Heart Rate from ECG 53 NIBP 95/62 NIBP BP-Mean 73 Respiration from ECG 17 SpO2 96 I&O: 02/23/20 02/24/20 02/25/20 06:59 06:59 06:59 Intake Total 940 120 Output Total 1495 375 Balance -555 -255 Result Diagrams: 02/22/20 03:18 02/22/20 03:18 Hospitalist ROS - Medication Medications: Active Medications Generic Name Dose Route Start Last Admin Trade Name Freq PRN Reason Stop Dose Admin Apixaban 2.5 mg 02/22/20 21:00 02/24/20 08:53 Apixaban 2.5 Mg Tab PO 2.5 mg BID JHONNY Administration Aspirin 81 mg 02/18/20 09:00 02/24/20 08:53 Aspirin 81 Mg Enteric Coated Tablet PO 81 mg DAILY JHONNY Administration Atorvastatin Calcium 20 mg 02/16/20 21:00 02/23/20 20:32 Atorvastatin Calcium 20 Mg Tab PO 20 mg HS JHONNY Administration Fludrocortisone Acetate 0.1 mg 02/17/20 09:00 02/24/20 08:53 Fludrocortisone Acetate 0.1 Mg Tab PO 0.1 mg DAILY JHONNY Administration Midodrine 10 mg 02/17/20 15:00 02/24/20 08:53 Midodrine Hcl 5 Mg Tab PO 10 mg TID JHONNY Administration - Exam General Appearance: NAD, awake alert Eye: PERRL ENT: normocephalic atraumatic Neck: supple Heart: RRR Respiratory: CTAB, normal chest expansion Gastrointestinal: soft, normal bowel sounds Neurological: no focal deficits Psychiatric: A&O x 3 Hosp A/P - Plan 74 years old gentleman who has significant past medical history of atrial fib on Eliquis for stroke prophylaxis, dyslipidemia CAD with status post recent four-vessel CABG in early January. Postoperatively, complicated with cholecystitis; however, patient was deemed not a candidate for surgery. Ultimately, patient had a cholecystectomy tube placed at [facility]. He subsequently discharged to a [facility] for rehab, patient presented to ER with complaint of chest pain, and s/p fall. Patient declined to go back to [facility], ultimately he was admitted for further work-up Sepsis - poa. Resolved. -Cultures negative and he is on Levaquin.. Citrobacter bacteremia - likely related to indwelling cholecystostomy tube as a possible source --transition to PO Levaquin --rpt BCx no growth. Appreciate ID input Elevated LFT - normalized --likely d/t transient obstruction of CBD, s/p ERCP with sphincterectomy --LFT normalized Hx cholecystitis with s/p cholecystectomy drain placement at [facility] -ERCP showed common bile duct in normal caliber with a filling defect in the mid part of the common bile duct --d/w Dr. Houston, d/c cholecysttostomy tube. follow up with him as outpatient prn basis --gallbladder drain removed. No indication for cholecystectomy as cystostomy tube placed for gallbladder distention and not far cholecystitis Gallbladder distention possibly due to cholelithiasis post coronary artery bypass graft CAD with s/p recent CABG in January at [facility] --cont ASA/Statin --BP and HR too low for BB.-------------> discontinued amiodarone.-->Started back on blood beta-tapan. 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 IV Lasix x 1 per cardiology PAF Post CABG A. fib --rate controlled. Resume Eliquis. Hypotension -resolved --cont home medications Midodrine and Florinef Vascular dementia -Supportive measures DVT prophylaxis on Eliquis. Disposition: Return to [facility] for further PT. CM consulted. Plan for discharge on Tuesday to [facility]. With 2-week course of Levaquin for acute cholecystitis, status post cholecystectomy drain placement and removal.. Follow-up with Dr. Stokes as needed. Concerning for Mobitz type II AV block -discontinued the Levaquin and replace with Augmentin. Mag level and potassium normal range. Will get twelve-lead EKG. Film Loader has been notified. Post op A. fib -234on Eliquis
--- NOTE | 2020-02-24 19:24 | CT ---
HEAD CT WITHOUT CONTRAST: Comparison: 02-16-2020 History: Unwitnessed fall. On Eliquis. Code Green. FINDINGS: No parenchymal hemorrhage. No extraaxial hematoma. No midline shift. Basilar cisterns are patent. Brain volume is age appropriate. Cortical white white matter differentiation is preserved. There are chronic small vessel ischemic changes of the white matter. No hydrocephalus. Adequate aeration of the sinuses and mastoid air cells. Intact calvarium. Small right parietal scalp hematoma, unchanged. IMPRESSION: No intracranial post traumatic sequelae. POS: PPP
[2020-02-24] MEDS: Amoxicillin/Potassium Clav 875 MG TAB PO SCH (20:23)
[2020-02-24] MEDS: Atorvastatin Calcium 20 MG TAB PO SCH (20:24)
[2020-02-25] MEDS: Fludrocortisone Acetate 0.1 MG TAB PO SCH (08:07)
[2020-02-25] MEDS: Amoxicillin/Potassium Clav 875 MG TAB PO SCH ×2 (08:07→22:09)
[2020-02-25] MEDS: Apixaban 2.5 MG TAB PO SCH (08:08)
[2020-02-25] MEDS: Aspirin 81 mg Enteric Coated Tablet PO SCH (08:08)
[2020-02-25] MEDS: Midodrine HCl 5 MG TAB PO SCH ×3 (08:08→22:10)
[2020-02-25] MEDS ORDERED: Furosemide 20 MG/2 ML VIAL SLOW IVP SCH (12:15)
[2020-02-25] MEDS ORDERED: Amiodarone 200 MG TAB PO SCH (12:15)
[2020-02-25] MEDS ORDERED: Potassium Chloride 20 MEQ TAB PO SCH (12:15)
--- NOTE | 2020-02-25 15:01 | PDOC.HOSPP ---
- Subjective Encounter Date: 02/25/20 Encounter Time: 11:40 Subjective: Patient doing well. He he is quite anxious to go home. He thinks he is living at home. He is from [facility]. breakfast manager is working on sending him back to long-term facility. He had a fall yesterday CT head is negative for any acute intracranial abnormality. I believe during that time he had a tachycardia and it showed a transient A. fib rate of around 120. Overnight he is sinus rhythm with rate around 60 with intermittent premature atrial contractions. - Objective Vital Signs & Weight: Vital Signs (12 hours) Temp Pulse Resp BP Pulse Ox 02/25/20 11:05 97.6 F 59 L 16 116/67 95 02/25/20 07:45 97.5 F L 60 16 131/64 96 02/25/20 03:35 97.7 F 60 20 130/68 96 Weight Admit Weight 131 lb 6.4 oz Weight 131 lb 6.4 oz Most Recent Monitor Data Heart Rate from ECG 53 NIBP 95/62 NIBP BP-Mean 73 Respiration from ECG 17 SpO2 96 I&O: 02/24/20 02/25/20 02/26/20 06:59 06:59 06:59 Intake Total 120 960 Output Total 375 850 Balance -255 110 Result Diagrams: 02/22/20 03:18 02/22/20 03:18 Additional Labs: Accuchecks 02/24/20 18:23 POC Glucose 87 Hospitalist ROS - Medication Medications: Active Medications Generic Name Dose Route Start Last Admin Trade Name Omidq PRN Reason Stop Dose Admin Amoxicillin/Clavulanate Potassium 875 mg 02/24/20 21:00 02/25/20 08:07 Amoxicillin/Potassium Clav 875 Mg Tab PO 02/29/20 21:01 875 mg Q12HR JHONNY Administration Apixaban 2.5 mg 02/22/20 21:00 02/25/20 08:08 Apixaban 2.5 Mg Tab PO 2.5 mg BID JHONNY Administration Aspirin 81 mg 02/18/20 09:00 02/25/20 08:08 Aspirin 81 Mg Enteric Coated Tablet PO 81 mg DAILY JHONNY Administration Atorvastatin Calcium 20 mg 02/16/20 21:00 02/24/20 20:24 Atorvastatin Calcium 20 Mg Tab PO 20 mg HS JHONNY Administration Fludrocortisone Acetate 0.1 mg 02/17/20 09:00 02/25/20 08:07 Fludrocortisone Acetate 0.1 Mg Tab PO 0.1 mg DAILY JHONNY Administration Midodrine 10 mg 02/17/20 15:00 02/25/20 08:08 Midodrine Hcl 5 Mg Tab PO 10 mg TID JHONNY Administration - Exam General Appearance: NAD, awake alert Eye: PERRL ENT: normocephalic atraumatic Neck: supple Heart: RRR Respiratory: CTAB, normal chest expansion Gastrointestinal: soft, normal bowel sounds Neurological: no focal deficits Psychiatric: A&O x 3 Hosp A/P - Plan 74 years old gentleman who has significant past medical history of atrial fib on Eliquis for stroke prophylaxis, dyslipidemia CAD with status post recent four-vessel CABG in early January. Postoperatively, complicated with cholecystitis; however, patient was deemed not a candidate for surgery. Ultimately, patient had a cholecystectomy tube placed at [facility]. He subsequently discharged to a [facility] for rehab, patient presented to ER with complaint of chest pain, and s/p fall. Patient declined to go back to [facility], ultimately he was admitted for further work-up Sepsis - poa. Resolved. -Cultures negative and he is on Levaquin.. Citrobacter bacteremia - likely related to indwelling cholecystostomy tube as a possible source --transition to PO Levaquin --rpt BCx no growth. Appreciate ID input Elevated LFT - normalized --likely d/t transient obstruction of CBD, s/p ERCP with sphincterectomy --LFT normalized Hx cholecystitis with s/p cholecystectomy drain placement at [facility] -ERCP showed common bile duct in normal caliber with a filling defect in the mid part of the common bile duct --d/w Dr. Houston, d/c cholecysttostomy tube. follow up with him as outpatient prn basis --gallbladder drain removed. No indication for cholecystectomy as cystostomy tube placed for gallbladder distention and not far cholecystitis Gallbladder distention possibly due to cholelithiasis post coronary artery bypass graft CAD with s/p recent CABG in January at [facility] --cont ASA/Statin --BP and HR too low for BB.-------------> discontinued amiodarone.-->Started back on blood beta-tapan. 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 IV Lasix x 1 per cardiology PAF Post CABG A. fib --rate controlled. Resume Eliquis. Hypotension -resolved --cont home medications Midodrine and Florinef Vascular dementia -Supportive measures DVT prophylaxis on Eliqu. Disposition: Return to [facility] for further PT. CM consulted. Plan for discharge on Tuesday to [facility]. With 2-week course of Levaquin for acute cholecystitis, status post cholecystectomy drain placement and removal.. Follow-up with Dr. Stokes as needed. Concerning for Mobitz type II AV block -discontinued the Levaquin and replace with Augmentin. Mag level and potassium normal range. Will get twelve-lead EKG. [employer] Washer has been notified. Post op A. fib -on He had a fall yesterday CT head is negative for any acute intracranial abn ormality. ?fall preceded by tachycardia and monitor showed a transient A. fib rate of around 120. Overnight he is in sinus rhythm with rate around 60 with intermittent premature atrial contractions. A. fib --- he is on Eliquis. He is from [place]. breakfast manager is working on sending him back to long-term facility.
[2020-02-25] MEDS ORDERED: AFRIN NASAL MIST 15 ML BOT NS SCH (16:00)
[2020-02-25] MEDS ORDERED: Oxymetazoline HCl 0.05% (30 ML BOT) NS SCH (16:00)
--- NOTE | 2020-02-25 16:01 | PRG ---
DATE OF SERVICE: 02/25/2020 SUBJECTIVE: Mr. Vaughn does not have any complaints, specifically no respiratory symptoms or diarrhea. He is voiding in the urinal. OBJECTIVE: VITAL SIGNS: Normal. LUNGS: Clear to auscultation. Yesterday, brigette morin was called because he fell, but was not a major event. DIAGNOSTIC STUDIES: CT scan of the head did not show any significant findings. White cell count 6.4, hemoglobin 8.2, platelets 224. Creatinine 0.9. ASSESSMENT AND DISCUSSION: Coronary artery disease; vascular dementia; cholecystitis, acute, managed with percutaneous cholecystostomy at [facility], readmission with likely transient cholangitis with bacteremia. The patient will be transitioned to oral quinolone for completion of therapy, duration of therapy probably another 7 days. Job ID: [id number]
--- NOTE | 2020-02-25 16:05 | PDOC.BPN ---
- Brief Progress Note Around 3 PM patient had a nosebleed as well as blood in his mouth. Currently it is stopped. Will give him Afrin and then and get stat CT head as well as sinus area. if there is hematoma versus bleed, based on the location of the bleed either neurosurgery versus ENT consult. Holding aspirin and Eliquis for now.
--- NOTE | 2020-02-25 16:26 | CT ---
Head CT without contrast 02/25/2020: COMPARISON: 02/24/2020 HISTORY: Fall, bleeding, blood thinners TECHNIQUE: Axial CT imaging at 5 mm intervals from vertex through skull base without contrast FINDINGS: There is mild mucosal thickening involving the alveolar recess of bilateral maxillary sinus es. No displaced calvarial fracture. Mild cerebral volume loss. Periventricular, deep, and subcortical white matter hypodensity present, e vidence of stable small vessel disease. No intracranial hemorrhage, midline shift, or mass effect. IMPRESSION: No intracranial hemorrhage or displaced calvarial fracture.
--- NOTE | 2020-02-25 16:31 | CT ---
CT Sinuses WO Con History: Fall. Bleeding. Comparison: None. Findings: Normal location of the temporomandibular joints. No retrobulbar hematoma. The zygoma and zygomatic arches are intact. Pterygoid plates are intact. Large erosion along the right maxillary first molar root. The medial orbital vergara, lateral orbital vergara, orbital floors and orbital roofs are intact. No osseous nasal septal fracture. Minimally impacted right nasal bone fracture at the nasomaxillary s uture. Visualized brain parenchyma is without hemorrhage. Impression: Minimally impacted right nasal bone fracture at the nasomaxillary suture.
[2020-02-25] MEDS: Atorvastatin Calcium 20 MG TAB PO SCH (22:10)
--- NOTE | 2020-02-26 02:11 | EKG ---
Test Reason : Blood Pressure : / mmHG Vent. Rate : 048 BPM Atrial Rate : 048 BPM P-R Int : 200 ms QRS Dur : 092 ms QT Int : 572 ms P-R-T Axes : 022 -13 138 degrees QTc Int : 510 ms Sinus bradycardia Nonspecific T wave abnormality Abnormal ECG When compared with ECG of 18-FEB-2020 17:45, (Unconfirmed) Sinus rhythm has replaced Junctional rhythm Vent. rate has decreased BY 64 BPM T wave inversion now evident in Anterior leads Confirmed by ANA MARÍA WILLIS MD ([id number]) on 02/26/2020 2:10:52 AM Referred By: GOLDIE Confirmed By:ANA MARÍA WILLIS MD
[2020-02-26 04:29] LABS: #Eosinphils 0.3 thou/uL (0.0-0.7); #Lymphocytes 1.7 thou/uL (1.20-3.40); #Monocytes 0.5 thou/uL (0.11-0.59); #Neutrophils 4.1 thou/uL (1.40-6.50); %Basophils 0.2 % (0.0-1.0); %Eosinophils 4.7 % (0.0-10.0); %Lymphocytes 25.8 % (21.0-51.0); %Monocytes 7.1 % (0.0-10.0); %Neutrophils 62.2 % (42.0-75.0); Hemoglobin 7.2 g/dL (14.0-18.0); Mean Corpuscular HGB CONC 33.1 g/dL (32.0-36.0); Mean Corpuscular Hemoglobin 29.9 pg (27.0-31.0); Mean Corpuscular Volume 90.2 fL (78.0-98.0); Mean Platelet Volume 6.5 fL (7.4-10.4); Platelet Count 210 thou/uL (130-400); White Blood Cell (WBC) Count 6.6 thou/uL (4.8-10.8)
[2020-02-26 04:47] LABS: ALT (SGPT) 29 U/L (8-55); AST (SGOT) 21 U/L (5-34); Albumin 2.5 g/dL (3.4-4.8); Alkaline Phosphatase 129 U/L (40-110); Anion Gap 9 mmol/L (10-20); BUN (Urea Nitrogen) 21 mg/dL (8.4-25.7); Bilirubin, Total 0.8 mg/dL (0.2-1.2); Calc. Creatinine Clearance 69 mL/min (70-130); Calcium 7.6 mg/dL (7.8-10.44); Carbon Dioxide 28 mmol/L (23-31); Chloride 104 mmol/L (98-107); Estimated GFR-MDRD 88; Glucose 91 mg/dL (83-110); Potassium 3.7 mmol/L (3.5-5.1); Protein, Total 4.5 g/dL (5.8-8.1); Sodium 137 mmol/L (136-145)
[2020-02-26] MEDS: Amoxicillin/Potassium Clav 875 MG TAB PO SCH ×2 (09:40→20:09)
[2020-02-26] MEDS: Midodrine HCl 5 MG TAB PO SCH ×3 (09:40→20:09)
[2020-02-26] MEDS: Fludrocortisone Acetate 0.1 MG TAB PO SCH (09:40)
[2020-02-26] MEDS: Amiodarone 200 MG TAB PO SCH (09:40)
[2020-02-26] MEDS ORDERED: Potassium Chloride 20 MEQ TAB PO SCH (12:30)
[2020-02-26] MEDS ORDERED: Furosemide 40 MG/4 ML VIAL SLOW IVP SCH (12:30)
--- NOTE | 2020-02-26 14:12 | PDOC.HOSPP ---
- Subjective Encounter Date: 02/26/20 Encounter Time: 10:10 Subjective: He has no further bleeding from his nose. We are holding his aspirin and Eliquis. His hemoglobin dropped to 7.2. We will plan for transfusion today. Patient is resting he is at his baseline----- cheerful mentation. Used to be runner. And she is quite limited with his activity inside his room. He is quite anxious to go back to his assisted facility. - Objective Vital Signs & Weight: Vital Signs (12 hours) Temp Pulse Resp BP Pulse Ox 02/26/20 11:42 98.5 F 54 L 14 119/60 97 02/26/20 07:33 98.4 F 57 L 16 117/87 02/26/20 04:00 97.8 F 63 12 122/59 L Weight Admit Weight 131 lb 6.4 oz Weight 145 lb 9 oz Most Recent Monitor Data Heart Rate from ECG 53 NIBP 95/62 NIBP BP-Mean 73 Respiration from ECG 17 SpO2 96 I&O: 02/25/20 02/26/20 02/27/20 06:59 06:59 06:59 Intake Total 960 1200 Output Total 850 1655 Balance 110 -455 Result Diagrams: 02/26/20 04:15 02/26/20 04:15 Hospitalist ROS - Medication Medications: Active Medications Generic Name Dose Route Start Last Admin Trade Name Kiley PRN Reason Stop Dose Admin Amiodarone HCl 200 mg 02/26/20 09:00 02/26/20 09:40 Amiodarone 200 Mg Tab PO 200 mg DAILY JHONNY Administration Amoxicillin/Clavulanate Potassium 875 mg 02/24/20 21:00 02/26/20 09:40 Amoxicillin/Potassium Clav 875 Mg Tab PO 02/29/20 21:01 875 mg Q12HR JHONNY Administration Atorvastatin Calcium 20 mg 02/16/20 21:00 02/25/20 22:10 Atorvastatin Calcium 20 Mg Tab PO 20 mg HS JHONNY Administration Fludrocortisone Acetate 0.1 mg 02/17/20 09:00 02/26/20 09:40 Fludrocortisone Acetate 0.1 Mg Tab PO 0.1 mg DAILY JHONNY Administration Midodrine 10 mg 02/17/20 15:00 02/26/20 09:40 Midodrine Hcl 5 Mg Tab PO 10 mg TID JHONNY Administration Potassium Chloride 20 meq 02/26/20 12:30 02/26/20 13:29 Potassium Chloride 20 Meq Tab PO 02/26/20 15:00 20 meq NOW JHONNY Administration - Exam General Appearance: NAD, awake alert Eye: PERRL ENT: normocephalic atraumatic Neck: supple Heart: RRR Respiratory: CTAB, normal chest expansion Gastrointestinal: soft, normal bowel sounds Neurological: cranial nerve grossly intact, no focal deficits Psychiatric: A&O x 3 Hosp A/P - Plan 74 years old gentleman who has significant past medical history of atrial fib on Eliquis for stroke prophylaxis, dyslipidemia CAD with status post recent four-vessel CABG in early January. Postoperatively, complicated with cholecystitis; however, patient was deemed not a candidate for surgery. Ultimately, patient had a cholecystectomy tube placed at [facility]. He subsequently discharged to a [place] for rehab, patient presented to ER with complaint of chest pain, and s/p fall. Patient declined to go back to [facility], ultimately he was admitted for further work-up Sepsis - poa. Resolved. -Cultures negative and he is on Levaquin.. Citrobacter bacteremia - likely related to indwelling cholecystostomy tube as a possible source --transition to PO Levaquin --rpt BCx no growth. Appreciate ID input Elevated LFT - normalized --likely d/t transient obstruction of CBD, s/p ERCP with sphincterectomy --LFT normalized Hx cholecystitis with s/p cholecystectomy drain placement at [facility] -ERCP showed common bile duct in normal caliber with a filling defect in the mid part of the common bile duct --d/w Dr. Houston, d/c cholecysttostomy tube. follow up with him as outpatient prn basis --gallbladder drain removed. No indication for cholecystectomy as cystostomy tube placed for gallbladder distention and not far cholecystitis Gallbladder distention possibly due to cholelithiasis post coronary artery bypass graft CAD with s/p recent CABG in January at [facility] --cont ASA/Statin --BP and HR too low for BB.-------------> discontinued amiodarone.-->Started back on blood beta-tapan. 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 IV Lasix x 1 per cardiology PAF Post CABG A. fib --rate controlled. Resume Eliquis. Hypotension -resolved --cont home medications Midodrine and Florinef Vascular dementia -Supportive measures DVT prophylaxis on Eliquis. Disposition: Return to [place] for further PT. CM consulted. Plan for discharge on Tuesday to [place]. With 2-week course of Levaquin for acute cholecystitis, status post cholecystectomy drain placement and removal.. Follow-up with Dr. Stokes as needed. Concerning for Mobitz type II AV block -discontinued the Levaquin and replace with Augmentin. Mag level and potassium normal range. Will get twelve-lead EKG. Brand Activation Manager has been notified. Post op A. fib -on 16 He had a fall yesterday CT head is negative for any acute intracranial abnormality. ?fall preceded by tachycardia and monitor showed a transient A. fib rate of around 120. Overnight he is in sinus rhythm with rate around 60 w ith intermittent premature atrial contractions. A. fib --- he is on Eliquis. He is from [place]. corporate logistics manager is working on sending him back to intermediate facility. 17th patient had a nosebleed as well as blood in his mouth yesterdat. s/p Afrin stat CT head neg sinus area -showed impacted right nasal bone fracture at the nasomaxillary suture area -Requested oral maxilla facial surgery to have their opinion Acute blood loss anemia due to nosebleed and being on anticoagulant -Do 1 unit transfusion we will repeat the CBC tomorrow morning. -Holding aspirin and Eliquis for now. His hemoglobin dropped to 7.2. We will plan for transfusion today.
[2020-02-26] MEDS: Atorvastatin Calcium 20 MG TAB PO SCH (20:09)
--- NOTE | 2020-02-27 07:00 | EKG ---
Test Reason : Blood Pressure : / mmHG Vent. Rate : 055 BPM Atrial Rate : 055 BPM P-R Int : 164 ms QRS Dur : 096 ms QT Int : 382 ms P-R-T Axes : 063 -17 197 degrees QTc Int : 365 ms Sinus bradycardia Nonspecific ST and T wave abnormality Abnormal ECG Confirmed by ANA MARÍA WILLIS MD ([id number]) on 02/27/2020 6:59:51 AM Referred By: GUICHO Confirmed By:ANA MARÍA WILLIS MD
[2020-02-27] MEDS: Amoxicillin/Potassium Clav 875 MG TAB PO SCH ×2 (08:47→21:22)
[2020-02-27] MEDS: Midodrine HCl 5 MG TAB PO SCH ×3 (08:47→21:24)
[2020-02-27] MEDS: Fludrocortisone Acetate 0.1 MG TAB PO SCH (08:47)
[2020-02-27] MEDS: Amiodarone 200 MG TAB PO SCH (08:48)
[2020-02-27 11:21] LABS: #Eosinphils 0.1 thou/uL (0.0-0.7); #Lymphocytes 1.2 thou/uL (1.20-3.40); #Monocytes 0.4 thou/uL (0.11-0.59); #Neutrophils 4.9 thou/uL (1.40-6.50); %Basophils 0.6 % (0.0-1.0); %Eosinophils 1.3 % (0.0-10.0); %Lymphocytes 18.4 % (21.0-51.0); %Monocytes 6.5 % (0.0-10.0); %Neutrophils 73.2 % (42.0-75.0); Hemoglobin 9.4 g/dL (14.0-18.0); Mean Corpuscular HGB CONC 33.7 g/dL (32.0-36.0); Mean Corpuscular Hemoglobin 31.7 pg (27.0-31.0); Mean Platelet Volume 7.1 fL (7.4-10.4); Platelet Count 217 thou/uL (130-400); RBC Distribution Width 15.6 % (11.5-14.5); Red Blood Cell (RBC) Count 2.96 mill/uL (4.70-6.10); White Blood Cell (WBC) Count 6.7 thou/uL (4.8-10.8)
--- NOTE | 2020-02-27 14:54 | PDOC.HOSPP ---
- Subjective Encounter Date: 02/27/20 Encounter Time: 09:30 Subjective: Patient seen and examined he is anxious to go. However we need to wait until ORIF surgery evaluate him for nasal septal fracture. As I am holding his Eliquis. Try to contact Dr. Ulloa as well for his postop A. fib. Patient is on sinus rhythm for the last 2 days and bradycardia. - Objective Vital Signs & Weight: Vital Signs (12 hours) Temp Pulse Resp BP BP Pulse Ox 02/27/20 11:26 97.2 F L 50 L 18 144/65 H 97 02/27/20 07:18 97.6 F 64 18 124/70 96 02/27/20 05:08 98.2 F 55 L 16 132/68 95 Weight Admit Weight 131 lb 6.4 oz Weight 145 lb 9 oz Most Recent Monitor Data Heart Rate from ECG 53 NIBP 95/62 NIBP BP-Mean 73 Respiration from ECG 17 SpO2 96 I&O: 02/26/20 02/27/20 02/28/20 06:59 06:59 06:59 Intake Total 1200 1720 Output Total 1655 900 Balance -455 820 Result Diagrams: 02/27/20 11:08 02/26/20 04:15 Hospitalist ROS - Medication Medications: Active Medications Generic Name Dose Route Start Last Admin Trade Name Freq PRN Reason Stop Dose Admin Amiodarone HCl 200 mg 02/26/20 09:00 02/27/20 08:48 Amiodarone 200 Mg Tab PO 200 mg DAILY JHONNY Administration Amoxicillin/Clavulanate Potassium 875 mg 02/24/20 21:00 02/27/20 08:47 Amoxicillin/Potassium Clav 875 Mg Tab PO 02/29/20 21:01 875 mg Q12HR JHONNY Administration Atorvastatin Calcium 20 mg 02/16/20 21:00 02/26/20 20:09 Atorvastatin Calcium 20 Mg Tab PO 20 mg HS JHONNY Administration Fludrocortisone Acetate 0.1 mg 02/17/20 09:00 02/27/20 08:47 Fludrocortisone Acetate 0.1 Mg Tab PO 0.1 mg DAILY JHONNY Administration Midodrine 10 mg 02/17/20 15:00 02/27/20 08:47 Midodrine Hcl 5 Mg Tab PO 10 mg TID JHONNY Administration - Exam General Appearance: NAD, awake alert Eye: PERRL Neck: supple Heart: RRR Respiratory: CTAB, normal chest expansion Gastrointestinal: soft, normal bowel sounds Extremities: 1+ LE edema Neurological: no focal deficits Psychiatric: A&O x 3 Hosp A/P - Plan 74 years old gentleman who has significant past medical history of atrial fib on Eliquis for stroke prophylaxis, dyslipidemia CAD with status post recent four-vessel CABG in early January. Postoperatively, complicated with cholecystitis; however, patient was deemed not a candidate for surgery. Ultimately, patient had a cholecystectomy tube placed at [facility]. He subsequently discharged to a [facility] for rehab, patient presented to ER with complaint of chest pain, and s/p fall. Patient declined to go back to [facility], ultimately he was admitted for further work-up Sepsis - poa. Resolved. -Cultures negative and he is on Levaquin.. Citrobacter bacteremia - likely related to indwelling cholecystostomy tube as a possible source --transition to PO Levaquin --rpt BCx no growth. Appreciate ID input Elevated LFT - normalized --likely d/t transient obstruction of CBD, s/p ERCP with sphincterectomy --LFT normalized Hx cholecystitis with s/p cholecystectomy drain placement at [facility] -ERCP showed common bile duct in normal caliber with a filling defect in the mid part of the common bile duct --d/w Dr. Houston, d/c cholecysttostomy tube. follow up with him as outpatient prn basis --gallbladder drain removed. No indication for cholecystectomy as cystostomy tube placed for gallbladder distention and not far cholecystitis Gallbladder distention possibly due to cholelithiasis post coronary artery bypass graft CAD with s/p recent CABG in January at [facility] --cont ASA/Statin --BP and HR too low for BB.-------------> discontinued amiodarone.-->Started back on blood beta-tapan. 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 IV Lasix x 1 per cardiology PAF Post CABG A. fib --rate controlled. Resume Eliquis. Hypotension -resolved --cont home medications Midodrine and Florinef Vascular dementia -Supportive measures Plan for discharge on Tuesday to [facility]. With 2-week course of Levaquin for acute cholecystitis, status post cholecystectomy drain placement and removal.. Follow-up with Dr. Stokes as needed. 15th Concerning for Mobitz type II AV block -discontinued the Levaquin and replace with Augmentin. Mag level and potassium normal range. Will get twelve-lead EKG. Tool Builder has been notified. Post op A. fib -on Eliquis 16 He had a fall yesterday CT head is negative for any acute intracranial abnormality. ?fall preceded by tachycardia and monitor showed a transient A. fib rate of around 120. Overnight he is in sinus rhythm with rate around 60 with intermittent premature atrial contractions. A. fib --- he is on Eliquis. He is from [place]. manager net is working on sending him back to alf facility. 17th patient had a nosebleed as well as blood in his mouth yesterdat. s/p Afrin stat CT head neg sinus area -showed impacted right nasal bone fracture at the nasomaxillary suture area -Requested oral maxilla facial surgery to have their opinion Acute blood loss anemia due to nosebleed and being on anticoagulant -Do 1 unit transfusion we will repeat the CBC tomorrow morning. -Holding aspirin and Eliquis for now. His hemoglobin dropped to 7.2. We will plan for transfusion today. 18th Status post 1 unit transfusion and his hemoglobin improved to 9.4 today. No further nosebleed. However we need to wait until OMF surgery evaluate him for nasal septal fracture. As I am holding his Eliquis. Tried to contact Dr. Ulloa as well for his postop A. fib, she has been converted to sinus. Patient is on sinus rhythm for the last 2 days and bradycardia. Restarted him on aspirin. Once we cleared about the question of anticoagulation and any input from oromaxillofacial surgery will plan to discharge him to the [facility] tomorrow.
--- NOTE | 2020-02-27 17:58 | PDOC.CONS ---
- Consultation Encounter Date: 02/26/20 Brief Consultation note Epistaxis after nasal trauma with nasal fracture. Given mild bleeding after nasal trauma recommend afrin (5 sprays) and pressure if future bleeding occurs with follow up in clinic for nasal endoscopy and cauterization. Recommend nasal saline spray 3-5 times daily 5 sprays per naris Humidify all supplemental 02 Full consultation note to follow
[2020-02-27] MEDS: Apixaban 2.5 MG TAB PO SCH (21:24)
[2020-02-27] MEDS: Atorvastatin Calcium 20 MG TAB PO SCH (21:24)
--- NOTE | 2020-02-28 01:43 | CON ---
DATE OF CONSULTATION: CHIEF COMPLAINT: Nasal fracture and nasal bleeding. HISTORY OF PRESENT ILLNESS: A 74-year-old male patient, with recent epistaxis and nasal fracture after a fall. Patient has been hospitalized for several days, being treated for several medical problems, including history of atrial fibrillation, on Eliquis for stroke prophylaxis; coronary artery disease, status post 4-vessel coronary artery bypass grafting in January of this year with cholecystitis. However, patient was deemed too complicated for a surgical intervention and patient had a cholecystostomy tube placed at [facility] and was discharged to a rehabilitation center and was readmitted to the hospital after presenting to the emergency room with a complaint of chest pain and a fall. CT imaging showed a nasal fracture and patient has had low volume epistaxis, and ENT was consulted for evaluation. PAST MEDICAL HISTORY: Coronary artery disease, hyperlipidemia, hypertension, dementia, atrial fibrillation, and cholecystitis. PAST SURGICAL HISTORY: Four-vessel coronary artery bypass grafting, cholecystostomy tube placement. FAMILY HISTORY: Noncontributory. SOCIAL HISTORY: Currently, he is residing in [place] for rehabilitation. No significant history of tobacco, alcohol, or illicit drug use. OUTPATIENT MEDICATIONS: Reviewed and listed in the electronic medical record. ALLERGIES: NO KNOWN DRUG ALLERGIES. REVIEW OF SYSTEMS: SKIN: Negative. EYES: Negative. EARS, NOSE, AND THROAT: See HPI, otherwise negative. RESPIRATORY: Negative. CARDIOVASCULAR: Negative. GASTROINTESTINAL: Negative. MUSCULOSKELETAL: Negative. NEUROLOGIC: Negative. HEMATOLOGIC/LYMPHATIC/IMMUNOLOGIC: Negative. ENDOCRINE: Negative. PHYSICAL EXAMINATION: GENERAL: No acute distress. Alert and oriented. HEAD AND FACE: Normocephalic and atraumatic. No facial skin lesions. No maxillary, frontal, parotid gland, or submandibular gland tenderness or masses or lesions. EYES: Pupils are equally round and reactive to light. Extraocular movements are intact and there is no nystagmus on lateral gaze. EARS: Right and left pinna are normal. EACs are clear. TMs are intact with normal landmarks. No evidence of effusion or infection. TMs are mobile to autoinsufflation. NOSE: External nose is normal. No palpable bony step-off or crepitus. Nasal mucosa is healthy. There is moderate crusting and mild tenderness to palpation over the nasal dorsum. There is no significant bleeding, no significant large vessel or dilated blood vessel which could be a source of bleeding. ORAL CAVITY: Mucous membranes are moist. Tongue is mobile. Floor of mouth is soft. No masses, lesions, or tenderness to palpation. NECK: No lymphadenopathy. Trachea is midline. No masses or lesions. NEUROLOGIC: Cranial nerves 2 through 12 are grossly normal. Mood and affect are normal. DATA: CT scan showing very mildly displaced nasal fracture with no comminuted nasal bone pieces. ASSESSMENT AND PLAN: A 74-year-old male patient, with a significant cardiac history, cholecystitis, and recent admission for chest pain and a fall which subsequently had a very mildly displaced nasal fracture and epistaxis. Given the patient's very mild displacement and given the palpation over the bony dorsum, there is no operative intervention for his nasal fracture and would continue with close treatment of his fracture and avoiding any future nasal trauma. Given the patient's recent epistaxis, recommend holding anticoagulation for short period of time 3-4 days to allow for clot maturation and to avoid future nasal bleeding. If the patient has recurrent nasal bleeding, recommend Afrin to be applied five sprays into each nostril and compress the soft part of the nose and closing the naris on both sides with thumb and forefinger holding for 15 minutes. Recommend nasal saline spray to each nostril five sprays 2 to 5 times a day and humidifying all supplemental oxygen through nasal cannula. After the patient is discharged, recommend to follow up in clinic, where a video nasal endoscopy can be performed to help localize any small vessels that may be contributory to his nasal bleeding given recent trauma and anticoagulation. If you have any questions, please feel free to call [phone]. Thank you for this consultation. Job ID: [id number] [facility]
[2020-02-28 04:28] LABS: Hemoglobin 8.3 g/dL (14.0-18.0); Platelet Count 200 thou/uL (130-400)
[2020-02-28] MEDS: Midodrine HCl 5 MG TAB PO SCH (08:24)
[2020-02-28] MEDS: Amoxicillin/Potassium Clav 875 MG TAB PO SCH (08:24)
[2020-02-28] MEDS: Amiodarone 200 MG TAB PO SCH (08:24)
[2020-02-28] MEDS: Fludrocortisone Acetate 0.1 MG TAB PO SCH (08:24)
[2020-02-28] MEDS: Apixaban 2.5 MG TAB PO SCH (08:24)
[2020-02-28] MEDS ORDERED: Aspirin 81 mg Enteric Coated Tablet PO SCH (09:00)
[2020-02-28 11:32] VITALS: BP 139/67; TEMP 97.6
--- NOTE | 2020-02-28 12:59 | PDOC.DS.DS ---
Provider - Provider Date of Admission: 02/17/20 22:44 Admitting Provider: David Lopez MD Primary Care Physician: Dorothy Hoover Course - Hospital Course Hospital Course: 74 years old gentleman who has significant past medical history of atrial fib on Eliquis for stroke prophylaxis, dyslipidemia CAD with status post recent four-vessel CABG in early January. Postoperatively, complicated with cholecystitis; however, patient was deemed not a candidate for surgery. Ultimately, patient had a cholecystectomy tube placed at [facility]. He subsequently discharged to a [facility] for rehab, patient presented to ER with complaint of chest pain, and s/p fall. Patient declined to go back to [facility], ultimately he was admitted for further work-up Sepsis - poa. Resolved. -Cultures negative and he is on Levaquin.. Citrobacter bacteremia - likely related to indwelling cholecystostomy tube as a possible source --transition to PO Levaquin--completed the antibiotic course. --rpt BCx no growth. Appreciate ID input Elevated LFT - normalized --likely d/t transient obstruction of CBD, s/p ERCP with sphincterectomy --LFT normalized Hx cholecystitis with s/p cholecystectomy drain placement at [facility] -ERCP showed common bile duct in normal caliber with a filling defect in the mid part of the common bile duct --d/w Dr. Houston, d/c cholecysttostomy tube. follow up with him as outpatient prn basis --gallbladder drain removed. 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 fib -. Resume Eliquis. Hypotension -resolved --cont home medications Midodrine and Florinef Vascular dementia -Supportive measures He had a fall on CT head is negative for any acute intracranial abnormality. ?fall preceded by tachycardia and monitor showed a transient A. fib rate of around 120. Overnight he is in sinus rhythm with rate around 60 with intermittent premature atrial contractions. A. fib --- he is on Eliquis. Patient had a nosebleed on and status post Afrin spray given and its a transient bleed however significant enough to give him a unit of transfusion. Eliquis on hold for couple of days and restarted on 18th evening. He did not had any further episodes of nosebleed. Both ENT and oral maxillofacial surgery evaluated her obviously no surgical intervention for nasal septal fracture. He can follow-up with Dr. Muro as needed basis for video nasal endoscopy. Shanna nwhile easy he needs to have Afrin spray as needed for nosebleed if recur. Continue with the nasal saline spray for 3-4 times a day. humidified oxygen if he requires oxygen. Currently he is in the room air sat satting around 98%. Hemodynamically stable to discharge him back to his manner. 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 fib. During his hospitalization other than few episodes of A. fib he remained in sinus rhythm throughout his stay. Resuscitation Status: 02/16/20 11:46 Resuscitation Status Routine Resuscitation Status: FULL: Full Resuscitation - Labs Lab Results: 02/28/20 04:02 02/28/20 04:02 Abnormal Lab Results - Last 48 hrs 02/26/20 15:52: Crossmatch See Detail 02/27/20 11:08: RBC 2.96 L, Hgb 9.4 L, Hct 27.8 L, MCH 31.7 H, RDW 15.6 H, MPV 7.1 L, Lymphocytes % 18.4 L 02/28/20 04:02: Hgb 8.3 L, Hct 25.4 L Microbiology - Entire Visit 02/18/20 20:44 Venous blood - Left Hand Blood Culture - Final NO GROWTH IN 5 DAYS 02/18/20 20:44 Venous blood - Right Arm Blood Culture - Final NO GROWTH IN 5 DAYS 02/17/20 00:29 Venous blood - Left Hand Blood Culture - Final Citrobacter koseri 02/17/20 00:29 Venous blood - Right Hand Blood Culture - Final Citrobacter koseri - Physical Exam Vitals: Vital Signs (12 hours) Temp Pulse Resp BP Pulse Ox 02/28/20 11:31 97.6 F 55 L 16 139/67 95 02/28/20 06:57 98.1 F 53 L 18 136/64 96 02/28/20 04:57 97.7 F 54 L 16 141/68 H 98 Weight Admit Weight 131 lb 6.4 oz Weight 139 lb 12.8 oz Most Recent Monitor Data Heart Rate from ECG 53 NIBP 95/62 NIBP BP-Mean 73 Respiration from ECG 17 SpO2 96 Physical Exam: The patient was seen and examined on the day of discharge. Patient appears well. He has no complaints. He has no nosebleed since we started him on Eliquis last night. Plan - Discharge Medications Prescriptions: Oxymetazoline HCl [Nasal [place]] 2 - 3 sprays EA NARE QID 15 Days #1 bot Home Medications: Medication Instructions Recorded Confirmed Type Acetaminophen 500 mg PO Q6HR PRN 02/16/20 02/16/20 History Amiodarone HCl [Pacerone] 100 mg PO DAILY 02/16/20 02/16/20 History Apixaban [Eliquis] 2.5 mg PO BID 02/16/20 02/16/20 History Atorvastatin Calcium 20 mg PO HS 02/16/20 02/16/20 History Fludrocortisone Acetate [Florinef] 0.1 mg PO DAILY 02/16/20 02/16/20 History Magnesium Oxide [Mag-Oxide] 400 mg PO DAILY 02/16/20 02/16/20 History Midodrine 10 mg PO DAILY 02/16/20 02/16/20 History Nitroglycerin 0.4 mg SL Q5MIN PRN 02/16/20 02/16/20 History Ondansetron [Zofran ODT] 4 mg SL Q8HR PRN 02/16/20 02/16/20 History Oxymetazoline HCl [Oxymetazoline 2 sprays EA NARE BID PRN 02/16/20 02/16/20 History HCl 0.05% Nasal [place]] Polyethylene Glycol 8000 500 gm MC DAILY PRN 02/16/20 02/16/20 History [Polyethylene Glycol] 147/Iron/Folic Acid 1 each PO DAILY 02/16/20 02/16/20 History [Azesco Tablet] Ubidecarenone [Co Q-10] 200 mg PO HS 02/16/20 02/16/20 History Oxymetazoline HCl [Nasal [place]] 2 - 3 sprays EA NARE QID 15 Days 02/28/20 Rx #1 bot Allergies: No Known Drug Allergies Allergy (Verified 02/16/20 13:47) - Discharge Instructions Discharge Instructions:: Activity:: Activity as Tolerated Nourishment:: Heart Healthy Diet - Follow up Plan Referrals: [facility] [Outside] (Returning to long term placement.) Abran Houston MD [Active] - (prn) Dorothy Hoover MD [Primary Care Provider] - 7 Days (Please follow-up. Follow-up with the PCP in 1 week. ) Chauncey Muro MD [Active] - 2-3 Weeks (Follow-up outpaint to continue to monitor nasal. Follow-up with Dr. Muro ENT in 2 weeks for video nasal endoscopy) Disposition: GROUP HOME FACILITY Quality - Care Measures CORE MEASURES:: N/A
--- NOTE | 2020-03-01 17:34 | EKG ---
Test Reason : CP Blood Pressure : / mmHG Vent. Rate : 062 BPM Atrial Rate : 062 BPM P-R Int : 224 ms QRS Dur : 096 ms QT Int : 484 ms P-R-T Axes : 042 -10 110 degrees QTc Int : 491 ms Sinus rhythm with 1st degree A-V block Prolonged QT Abnormal ECG Confirmed by ROXIE JANE ([id number]), script editor JENNIFER SOLORZANO ([id number]) on 03/01/2020 5:34:08 PM Referred By: Confirmed By:ROXIE Ruby
== END 2020-02-28 12:24 | DRG 919 ==
LOC: ERS 08:04 → 2NO 11:33 → OBSVTOIN 02-17 22:44 → IMCU/EMU 02-18 20:34 → 2NO 02-23 14:56
PROVIDERS: ADMIT Student in an Organized Health Care Education/Training Program; ATTEND Internal Medicine
PROC: 0F798ZZ Dilation of Common Bile Duct, Via Natural or Artificial Opening Endoscopic (ICD-10-PCS; principal; 2020-02-20)
PROC: 0F778ZZ Dilation of Common Hepatic Duct, Via Natural or Artificial Opening Endoscopic (ICD-10-PCS; 2020-02-20)
PROC: 30233N1 Transfusion of Nonautologous Red Blood Cells into Peripheral Vein, Percutaneous Approach (ICD-10-PCS; 2020-02-26)
DX: T85.79XA Infection and inflammatory reaction due to other internal prosthetic devices, implants and grafts, initial encounter (principal); A41.9 Sepsis, unspecified organism; I50.43 Acute on chronic combined systolic (congestive) and diastolic (congestive) heart failure; E44.0 Moderate protein-calorie malnutrition; F01.51 Vascular dementia, unspecified severity, with behavioral disturbance; D62 Acute posthemorrhagic anemia; Y83.9 Surgical procedure, unspecified as the cause of abnormal reaction of the patient, or of later complication, without mention of misadventure at the time of the procedure; I48.91 Unspecified atrial fibrillation; I25.10 Atherosclerotic heart disease of native coronary artery without angina pectoris; E78.5 Hyperlipidemia, unspecified; N40.0 Benign prostatic hyperplasia without lower urinary tract symptoms; N28.9 Disorder of kidney and ureter, unspecified; R79.89 Other specified abnormal findings of blood chemistry; R07.89 Other chest pain; R74.01 Elevation of levels of liver transaminase levels; R07.81 Pleurodynia; Z79.899 Other long term (current) drug therapy; Z68.21 Body mass index [BMI] 21.0-21.9, adult; Z79.01 Long term (current) use of anticoagulants; Z95.1 Presence of aortocoronary bypass graft; I95.9 Hypotension, unspecified; I44.1 Atrioventricular block, second degree; R04.0 Epistaxis; S02.2XXA Fracture of nasal bones, initial encounter for closed fracture; W18.30XA Fall on same level, unspecified, initial encounter; Z20.828 Contact with and (suspected) exposure to other viral communicable diseases
CPT/HCPCS: 36415; 36416; 36430; 70450; 71045; 74177; 74330; 76000; 76705; 80053; 82553; 82565; 83605; 83690; 83735; 84484; 85007; 85014; 85018; 85025; 85027; 85049; 86140; 86850; 86900; 86901; 87040; 87077; 87149; 87186; 87635; 93005; 93010; 93306; 96374; 96375; 96376; G0378; J0456; J0692; J1100; J1940; J2405; J2543; J2704; J3010; J3370; J3490; J7050; P9016; Q9967; U0003

== ENCOUNTER 2020-03-01 11:35 | Emergency (ER) | payer MEDICARE, OTHER ==
[2020-03-01] MEDS ORDERED: Oxymetazoline HCl 0.05% (30 ML BOT) NS SCH (12:00)
== END 2020-03-01 13:00 ==
LOC: ERS 11:35
DX: R04.0 Epistaxis (principal); I48.91 Unspecified atrial fibrillation; I25.10 Atherosclerotic heart disease of native coronary artery without angina pectoris; Z79.01 Long term (current) use of anticoagulants; Z79.899 Other long term (current) drug therapy
CPT/HCPCS: 99283